=== PATIENT | male | born 1935 | race Caucasian/White ===

== ENCOUNTER 2019-06-13 13:08 | Emergency (ER) | payer OTHER, BC ==
[2019-06-13 13:23] VITALS: TEMP 98.3
[2019-06-13 13:32] VITALS: BP 117/74; BMI 26.6
--- NOTE | 2019-06-13 13:43 | PDOC ---
History of Present Illness - General Chief Complaint: Lethargy Stated Complaint: UNCONSCIOUS Time Seen by Provider: 06/13/19 13:17 - History of Present Illness Initial Comments: 06/13/19 13:36 84 yo M PMH dementia, amyloid cerebral angiopathy, HTN, sent from [facility] after reportedly being found down. Unknown if there was a fall or how long the patient was down for. Patient states "nothing happened this morning" and denies fall and LOC. However , he also denies that he was found down. Reports that he has no complaints. However, when asked orientation questions, he repeats the question and then states "I am disgusted". Denies CP, SOB, abdominal pain, fevers/chills, constipation/diarrhea, DEL TORO, N/V. Past History - Past Medical History Allergies/Adverse Reactions: Allergies Allergy/AdvReac Type Severity Reaction Status Date / Time lansoprazole Allergy Verified 06/13/19 13:48 NSAIDS (Non-Steroidal Allergy Verified 06/13/19 13:48 Anti-Inflamma COPD: No Dementia: Yes Psychiatric Problems: Yes Seizures: Yes - Psycho Social/Smoking Cessation Hx Smoking History: Unknown if ever smoked Hx Alcohol Use: No Drug/Substance Use Hx: No Review of Systems - Review of Systems Comments:: 06/13/19 13:39 Limited by dementia and amyloid cerebral angiopathy. Denies CP, SOB, abdominal pain, DEL TORO, N/V, fevers/chills. *Physical Exam - Vital Signs Last Vital Signs Temp Pulse Resp BP Pulse Ox 98.3 F 73 18 117/74 99 06/13/19 13:20 06/13/19 13:19 06/13/19 13:20 06/13/19 13:20 06/13/19 13:20 - Physical Exam 06/13/19 13:40 Gen: well-developed, well-nourished, NAD Neuro: AAOX1 (name, replies that he is disgusted when asked his birthday, the current year, where he is, and why he is here), CN II-XII intact, FTN intact, EOMI, PERRLA, 5/5 strength, SILT HEENT: atraumatic, normocephalic Neck: trachea midline, supple CV: regular rate, regular rhythm, no murmurs, rubs, or gallops Pulm: CTA b/l, no wheezing Abd: soft, non-distended, non-tender MSK: full ROM, intact pulses Extr: no edema, no deformities Skin: warm, dry ED Treatment Course - LABORATORY CBC & Chemistry Diagram: 06/13/19 13:52 06/13/19 13:52 - RADIOLOGY Radiology Studies Ordered: Category Date Time Status HEAD CT WITHOUT CONTRAST [CT] Stat CT Scan 06/13/19 13:34 Ordered CXRPORT [CHEST X-RAY PORTABLE*] [RAD] Stat Radiology 06/13/19 13:35 Ordered Medical Decision Making - Medical Decision Making 06/13/19 13:46 84 yo M with known dementia, found down. Unknown whether patient fell and how long he was down. - CBC, CMP - coags - EKG, trop - CXR - Head CT non con - CK - reassess 06/13/19 15:09 CXR rotated to the left, poor inspiratory effort, prominent mediastinum, no acute pathology. 06/13/19 15:31 CT head with no acute pathology. Has L inferior frontal lobe encephalomalacia, moderate periventricular and subcortical chronic microvascular ischemic changes. 06/13/19 15:32 CBC, CMP wnl, negative trop. CK wnl at 295, Cr 1.3. Will f/u urine. If unconcerning, will plan to dc back to [facility]. 06/13/19 16:12 UA negative. Will dc. Discharge - Discharge Information Problems reviewed: Yes Clinical Impression/Diagnosis: Unwitnessed fall Condition: Stable Disposition: HOME - Admission No - Follow up/Referral Referrals: April Wise [Primary Care Provider] - - Patient Discharge Instructions Patient Printed Discharge Instructions: How to Prevent Falls Additional Instructions: You were seen in the ED after an unwitnessed fall. Your CT scan, EKG, and labs were unconcerning. Please follow up with your primary care doctor within one week. Return to the ED if you develop worsening symptoms. - Post Discharge Activity
[2019-06-13 14:00] LABS: BASO % 0.6 % (0-2.0); EOS % 1.7 % (0-4.5); HEMATOCRIT 40.5 % (35.4-49); HEMOGLOBIN 13.5 GM/dL (11.7-16.9); LYMPH % 16.9 % (8-40); MCH 34.7 pg (25.7-33.7); MCHC 33.4 g/dl (32.0-35.9); MEAN CELL VOLUME 103.8 fl (80-96); MONO % 11.4 % (3.8-10.2); NEUT % 69.4 % (42.8-82.8); PLATELET COUNT 172 K/MM3 (134-434); RDW 14.5 % (11.9-15.9); WHITE BLOOD COUNT 6.5 K/mm3 (4.0-10.0)
[2019-06-13 14:04] VITALS: PULSE 87
[2019-06-13 14:16] LABS: INR 1.01 (0.83-1.09); PROTHROMBIN TIME (PATIENT) 11.9 SEC (9.7-13.0)
[2019-06-13 14:19] LABS: ACTIVATED PTT 31.2 SECONDS (25.2-36.5)
[2019-06-13 14:30] LABS: ALBUMIN 3.6 g/dl (3.4-5.0); BILIRUBIN,TOTAL 0.4 mg/dL (0.2-1); BLOOD UREA NITROGEN 21.2 mg/dL (7-18); CALCIUM 9.5 mg/dL (8.5-10.1); CREATININE 1.3 mg/dL (0.55-1.3); POTASSIUM 3.9 mmol/L (3.5-5.1); TOT PROT 6.1 g/dl (6.4-8.2)
--- NOTE | 2019-06-13 14:58 | PDOC ---
Documentation entered by Helena Ashton SCRIBE, acting as scribe for Delroy Woodard MD. Delroy Woodard MD: This documentation has been prepared by the Daisha oliveira Xhesika, SCRIBE, under my direction and personally reviewed by me in its entirety. I confirm that the documentation accurately reflects all work, treatment, procedures, and medical decision making performed by me. Attending Attestation - Resident Resident Name: Diana Wong - ED Attending Attestation I have performed the following: I have examined & evaluated the patient, The case was reviewed & discussed with the resident, I agree w/resident's findings & plan, Exceptions are as noted - HPI HPI: 06/13/19 17:00 The patient is an 84 year old male with a PMH of dementia, amyloid cerebral angiopathy, HTN who presents to the ED from [facility] after being found down. Per NH, unknown how long the patient was down for. Pt is a poor historian due to his clinical condition. Allergies:lansoprazole, NSAIDS Social Hx: Denies current smoking, drinking, or other substance usage - Physicial Exam PE: 06/13/19 17:02 Vitals: Triage Vital signs reviewed General Appearance: No acute distress, well nourished well developed, Cardiac: Regular rate and rhythym, no murmurs, no rubs, no gallops, Lungs: Clear to auscultation bilateral, good air movement bilaterally, Abdomen: Soft, non distended, normal bowel sounds, diffuse abdominal tenderness to palpation Extremities: Full range of motion to all extremities, no cyanosis, clubbing, or edema Skin: Warm and dry, no rashes or lesions, no rash, no petechiae Psych: Normal mood, normal affect - Medical Decision Making 06/13/19 17:17 Chronic abdominal pain in patient with Alzheimer's dementia labs CAT scan within normal limits patient does need outpatient colonoscopy discussed with family will follow-up with GI Findings, need for follow-up and strict return instructions discussed with family.
[2019-06-13 16:06] LABS: URINE APPEARANCE CLEAR; URINE BILIRUBIN NEGATIVE (NEGATIVE); URINE COLOR YELLOW; URINE GLUCOSE (UA) NEGATIVE (NEGATIVE); URINE KETONE NEGATIVE (NEGATIVE); URINE LEUK ESTERASE NEGATIVE (NEGATIVE); URINE NITRITE NEGATIVE (NEGATIVE); URINE PROTEIN TRACE (NEGATIVE); URINE UROBILINOGEN 0.2 mg/dL (0.2-1.0)
== END 2019-06-13 18:10 | disposition short-term general hospital (02) ==
LOC: JER 13:08
DX: Z04.3 Encounter for examination and observation following other accident (principal); W18.39XA Other fall on same level, initial encounter; Y93.89 Activity, other specified; Y92.099 Unspecified place in other non-institutional residence as the place of occurrence of the external cause; Z88.8 Allergy status to other drugs, medicaments and biological substances; F03.90 Unspecified dementia, unspecified severity, without behavioral disturbance, psychotic disturbance, mood disturbance, and anxiety; F99 Mental disorder, not otherwise specified; I10 Essential (primary) hypertension; I68.0 Cerebral amyloid angiopathy
CPT/HCPCS: 36415; 70450-TC; 71045-TC-FY; 80053; 81003; 82550; 82553; 82962; 84484; 85025; 85610; 85730; 87086; 99282-25

== ENCOUNTER 2019-06-14 05:07 | Emergency (ER) | payer OTHER, BC ==
[2019-06-14 05:32] VITALS: BP 110/77; PULSE 81; TEMP 98.4; BMI 26.6
--- NOTE | 2019-06-14 05:54 | PDOC ---
History of Present Illness - General Chief Complaint: Injury Stated Complaint: FALL Time Seen by Provider: 06/14/19 05:14 - History of Present Illness Initial Comments: Rai Cronin is an 84yo man with a PMH of dementia, amyloid cerebral angiopathy, HTN, DNR/DNI who presents from [facility] after an unwitnessed fall. Per the SNF, Mr Cronin was seen in his room in the evening and was reportedly becoming agitated. He was left alone for several minutes, and when staff returned he was found on the floor of the shower. He was awake and alert, and he reportedly complained of right leg pain. Mr Cronin was seen yesterday afternoon in the ED with a similar unwitnessed fall. Past History - Past Medical History Allergies/Adverse Reactions: Allergies Allergy/AdvReac Type Severity Reaction Status Date / Time lansoprazole Allergy Verified 06/14/19 05:09 NSAIDS (Non-Steroidal Allergy Verified 06/14/19 05:09 Anti-Inflamma COPD: No Dementia: Yes Psychiatric Problems: Yes Seizures: Yes - Psycho Social/Smoking Cessation Hx Smoking History: Unknown if ever smoked Have you smoked in the past 12 months: No Information on smoking cessation initiated: No Hx Alcohol Use: No Drug/Substance Use Hx: No Review of Systems - Review of Systems Comments:: Could not obtain secondary to dementia *Physical Exam - Vital Signs Last Vital Signs Temp Pulse Resp BP Pulse Ox 98.4 F 81 20 110/77 98 06/14/19 05:09 06/14/19 05:09 06/14/19 05:09 06/14/19 05:09 06/14/19 05:09 - Physical Exam General: Comfortable, no acute distress HEENT: Atraumatic, PERRL, EOMI, MMM, no posterior neck tenderness Cards: RRR, no murmur appreciated Pulm: Comfortable on room air, clear to auscultation bilaterally Abd: Soft, nontender, nondistended Ext: Atraumatic without deformity, tenderness, erythema, edema, or ecchymosis. Moves all extremities Skin: Normal color, no rashes or lesions Neuro: Sleeping comfortably, easily wakened. CN grossly intact, normal speech, motor/sensory grossly intact and symmetric Psych: Mood appropriate to situation Medical Decision Making - Medical Decision Making 06/14/19 05:47 Rai Cronin is an 84yo man with a PMH of dementia, amyloid cerebral angiopathy, HTN who presents from [facility] after an unwitnessed, reportedly mechanical fall in the shower. - Appears to be mechanical fall, pt was only alone for several minutes, no indication of preceding or subsequent symptoms - Full workup approximately 12 hours ago. Will not repeat - CT head, CT c-spine to evalute for injury - No RLE pain or visible injury on exam. No imaging needed. 06/14/19 06:53 - CT head, c-spine negative for acute pathology - Will discharge home back to [facility] Discussed with Dr Maris Tolliver PGY2 Discharge - Discharge Information Problems reviewed: Yes Clinical Impression/Diagnosis: Unwitnessed fall Condition: Stable Disposition: HOME - Admission No - Follow up/Referral Referrals: April Wise [Primary Care Provider] - - Patient Discharge Instructions Patient Printed Discharge Instructions: How to Prevent Falls, DI for Closed Head Injury Additional Instructions: Discharge Instructions: You were seen in the emergency department following a fall. You had a had and neck CT scan that did not show any fracture or other injury. Home Care and Follow Up: - You may use over the counter medications as needed for pain at home. 650- 1000mg acetaminophen (Tylenol) or 600mg ibuprofen (Motrin or Advil) can be used every 6-8 hours. - It is strongly recommended that you take ibuprofen with food to help prevent stomach irritation. - You may buy a numbing patch that contains lidocaine (the patch is 4% lidocaine ) that can be placed over the areas of greatest pain. The lidocaine patch may be placed for 12 hours then removed for 12 hours. - Try using an ice pack for 20 minutes every hour or a heating pad for additional pain control. These should NOT be used over the lidocaine patch, but you may place them over the areas of pain while the patch is off. - Do not stop moving around. As much as you can tolerate, continue to do light exercise and stretching exercises. Increase your activity level as much as you can tolerate daily. - If your pain does not improve over the next week, please see your regular doctor for follow up. - Seek immediate medical care if you have significant worsening of your symptoms , additional falls, pain that does not improve with medication, you are unusually sleepy, you have any neurological deficits (one-sided weakness, numbness, changes in voice, changes in vision, etc), you have multiple episodes of vomiting per hour for 2 or more hours, or you have any other medical emergency. - Post Discharge Activity
--- NOTE | 2019-06-14 07:01 | PDOC ---
Attending Attestation - Resident Resident Name: Monica Tolliver - ED Attending Attestation I have performed the following: I have examined & evaluated the patient, The case was reviewed & discussed with the resident, I agree w/resident's findings & plan - HPI HPI: 06/14/19 07:00 Rai Cronin is an 84yo man with a PMH of dementia, amyloid cerebral angiopathy, HTN, DNR/DNI who presents from [facility] after an unwitnessed fall in the shower. Per the [facility], Mr Cronin was seen in his room in the evening and was reportedly becoming agitated. He was left alone for several minutes, and when staff returned he was found on the floor of the shower. He was awake and alert, and he reportedly complained of right leg pain. Mr Cronin was seen yesterday afternoon in the ED with a similar unwitnessed fall , with negative workup including labs/EKG and imaging.. new to the dementia unit. 06/14/19 07:05 - Physicial Exam PE: 06/14/19 07:01 Agree with the resident's HPI and PE as documented in the electronic medical record. NAD, pleasantly demented, resting comfortably. EOMI, PERRL, nl conjunctiva, anicteric; neck supple. lungs clear, RRR, abdomen soft nontender. No rebound, no guarding. pelvis stable, FROM in prox and distal joints. Back nontender. ROBLES x4. No peripheral edema. normal color for ethnicity, WWP. no discoloration or ecchymosis. 06/14/19 07:04 - Medical Decision Making 06/14/19 07:01 Vital Signs Temp Pulse Resp BP Pulse Ox 98.4 F 81 20 110/77 98 06/14/19 05:09 06/14/19 05:09 06/14/19 05:09 06/14/19 05:09 06/14/19 05:09 unremarkable workup in the past 24 hours from [facility] after fall, normal labs/ lytes, UA. HD appropriate, no fever. no tenderness elicited on exam, baseline dementia CT head and C spine neg for acute injuries/bleed, fx. no further workup or labs indicated at this time given unremarkable workup in the ED. DC back to [facility], fall prevention and precautions provided. 06/14/19 07:05
== END 2019-06-14 09:20 | disposition home or self-care (01) ==
LOC: JER 05:07
DX: Z04.3 Encounter for examination and observation following other accident (principal); W18.39XA Other fall on same level, initial encounter; Y93.89 Activity, other specified; Y92.091 Bathroom in other non-institutional residence as the place of occurrence of the external cause; Z88.8 Allergy status to other drugs, medicaments and biological substances; I68.0 Cerebral amyloid angiopathy; I10 Essential (primary) hypertension; F03.90 Unspecified dementia, unspecified severity, without behavioral disturbance, psychotic disturbance, mood disturbance, and anxiety; R56.9 Unspecified convulsions; F99 Mental disorder, not otherwise specified
CPT/HCPCS: 70450-TC; 72125-TC; 99282-25

== ENCOUNTER 2019-06-29 11:15 | Inpatient (IN) | payer OTHER, BC ==
[2019-06-29] MEDS ORDERED: SODIUM CHLORIDE 2,041 ML IV ONE (12:15)
[2019-06-29] MEDS ORDERED: ACETAMINOPHEN INJECTION 100 ML IVPB ONE (12:50)
[2019-06-29] MEDS ORDERED: ACETAMINOPHEN 1000 MG/100 ML VIAL (NON FORMULARY) IVPB ONE (12:58)
--- NOTE | 2019-06-29 13:00 | PDOC ---
Documentation entered by Patricia Flores SCRIBE, acting as scribe for Laurel Pollock MD. Laurel Pollock MD: This documentation has been prepared by the Mark oliveira Brenda, SCRIBE, under my direction and personally reviewed by me in its entirety. I confirm that the documentation accurately reflects all work, treatment, procedures, and medical decision making performed by me. History of Present Illness - General Chief Complaint: Cold Symptoms Stated Complaint: FEVER History Source: Patient Exam Limitations: No Limitations - History of Present Illness Initial Comments: 06/29/19 12:31 Rai Cronin is an 84yo man with a PMH of dementia, amyloid cerebral angiopathy, HTN, DNR/DNI who presents from [facility] for lethargy and a fever of 102.3. As per EMS report, the MS was also concerned about the patient's vitals, which were reported as follows: Temp 102.3, HR 104, BP 147/92 and respiratory rate 20. As per patients records, he has had frequent falls in June 2019, with unremarkable imaging and workup. ROS limited due to dementia Allergies: None Past Medical History: Dementia, amyloid cerebral angiopathy, HTN, seizures Social history: Lives at [address] [place] [address]. Unknown if ever smoked. no flu shot this year. Surgical history: None reported Meds: as documented in EMR PMD: April Wise 06/29/19 13:16 Past History - Past Medical History Allergies/Adverse Reactions: Allergies Allergy/AdvReac Type Severity Reaction Status Date / Time lansoprazole Allergy Verified 06/29/19 11:58 NSAIDS (Non-Steroidal Allergy Verified 06/29/19 11:58 Anti-Inflamma Home Medications: Ambulatory Orders Allopurinol 300 mg PO DAILY 06/28/19 Donepezil HCl 10 mg PO DAILY 06/28/19 Enalapril Maleate [Vasotec] 20 mg PO DAILY 06/28/19 Levomefolate/Algal Oil [Deplin-Algal Oil 15 mg Capsule] 15 - 90.314 each PO DAILY 06/28/19 Naratriptan HCl [Amerge -] 2.5 mg PO PRN PRN 06/28/19 Olanzapine 7.5 mg PO DAILY 06/28/19 Pravastatin Sodium 20 mg PO HS 06/28/19 levETIRAcetam [Keppra -] 250 mg PO BID 06/28/19 COPD: No Dementia: Yes Psychiatric Problems: Yes Seizures: Yes - Psycho Social/Smoking Cessation Hx Smoking History: Never smoked Have you smoked in the past 12 months: No Hx Alcohol Use: No Drug/Substance Use Hx: No Review of Systems - Review of Systems Able to Perform ROS?: No Comments:: 06/29/19 12:23 ROS limited due to patient's dementia and hearing impairment. *Physical Exam - Vital Signs Last Vital Signs Temp Pulse Resp BP Pulse Ox 97.8 F 101 H 18 141/90 94 L 06/29/19 11:15 06/29/19 11:15 06/29/19 11:15 06/29/19 11:15 06/29/19 11:15 - Physical Exam 06/29/19 12:31 General: (+) Demented. actively coughing. HEENT: NCAT, PERRL, EOMI, clear conjunctiva, anicteric, moist mucous membranes , clear oropharynx, no oral lesions.. Neck: neck supple, FROM Resp: (+) Bilateral crackles. mildly tachypneic. CVS: (+) Tachycardic. No murmurs, 2+ peripheral pulses throughout, no peripheral edema Abdomen: soft, NTND, no rebound or guarding. Back: nontender, normal inspection and ROM MSK: no edema, ROBLES x4, ROM intact. No clubbing or cyanosis. normal bulk and tone. Extremities: no calf tenderness Neuro: alert, dementia, (+) tremors at baseline. Skin: Very warm and well perfused, cap refill <2 sec, normal color. (+) Warm to the touch. 06/29/19 13:17 Heart Score/ECG Review #1 ECG reviewed & interpreted by me at: 12:15 General ECG Interpretation: Sinus Rhythm, Normal Intervals 06/29/19 12:59 EKG sinus tachycardia 104 bpm, no interval abnormalities, narrow QRS, ST and T wave segments and morphology normal. Nonspecific T wave abnormalities ED Treatment Course - LABORATORY CBC & Chemistry Diagram: 06/29/19 13:00 06/29/19 13:00 - RADIOLOGY Radiology Studies Ordered: Category Date Time Status CHEST X-RAY PORTABLE* [RAD] Stat Radiology 06/29/19 11:57 Completed Medical Decision Making - Critical Care Time Total Critical Care Time (minutes): 60 (acute respiratory failure) Critical Care Statement: The care of this patient involved high complexity decision making to prevent further life threatening deterioration of the patient 's condition and/or to evaluate & treat vital organ system(s) failure or risk of failure. - Medical Decision Making 06/29/19 12:59 Vital Signs Temp Pulse Resp BP Pulse Ox 97.8 F 101 H 18 141/90 94 L 06/29/19 11:15 06/29/19 11:15 06/29/19 11:15 06/29/19 11:15 06/29/19 11:15 Vital signs reviewed notable for rectal temperature of 101, while residential it was 102.3. Tachycardia, SPO2 is borderline 88 to 94% on room air, placed on supplemental oxygen for mild hypoxia. Differential diagnosis includes pneumonia, viral syndrome, influenza, dehydration, anemia, electrolyte/metabolic derangements, ACS, arrhythmia, UTI, pleural effusion labs and lytes wnl, reassuring Patient was given DuoNeb for his cough, on supplemental oxygen for his respiratory symptoms and hypoxia. Vancomycin and Zosyn given for antibiotic coverage of presumed pneumonia. Despite chest x-ray negative for acute pulmonary pathology, however xray is poorly sensitive, with clinical sx, viral vs bacterial pna with risk factors for complications.. However he does have a fever with a productive cough and hypoxia and there is suspicion for pneumonia versus viral illness. Influenza swab is negative. lactic acid elevated 2.4, will hydrate, likely related to dehydration and sepsis /infection, will recheck after fluids and trend will require continued O2, chest PT and nebs prn, abx and supportive care discussed with family member, son in law Neftali came to bedside and updated with information as well as cali Cronin (, currently away and returning to [facility] in 2 days). also DNR/DNI confirmed with paperwork CT head for eval of intracranial etiology for lethargy, given h/o cerebral amyloid ID cs with Dr Acosta discussed case tamiflu for high risk flu features, droplet precautions with mask. on supp O2. admitting to Dr Hill, administrative operations coordinator physician taking admits is Dr Sheikh, discussed case and provided signout, impression and management plan. 06/29/19 16:51 Discharge - Discharge Information Problems reviewed: Yes Clinical Impression/Diagnosis: Pneumonia, Febrile illness, acute, Lactic acidosis Acute respiratory failure Qualifiers: Respiratory failure complication: hypoxia Qualified Code(s): J96.01 - Acute respiratory failure with hypoxia Condition: Fair - Admission Yes - Follow up/Referral - Patient Discharge Instructions - Post Discharge Activity
--- NOTE | 2019-06-29 13:14 | EKG ---
Test Reason : Blood Pressure : / mmHG Vent. Rate : 104 BPM Atrial Rate : 104 BPM P-R Int : 170 ms QRS Dur : 092 ms QT Int : 332 ms P-R-T Axes : 049 -37 062 degrees QTc Int : 436 ms SINUS TACHYCARDIA LEFT AXIS DEVIATION INFERIOR INFARCT , AGE UNDETERMINED POSSIBLE ANTERIOR INFARCT , AGE UNDETERMINED ABNORMAL ECG NO PREVIOUS ECGS AVAILABLE Confirmed by KRISTYN GIVENS MD ([id number]) on 06/29/2019 1:14:38 PM Referred By: Confirmed By:KRISTYN GIVENS MD
[2019-06-29 13:40] LABS: VENOUS PC02 45.1 mmHg (38-52); VENOUS PO2 < 49 mmHg (28-48)
[2019-06-29 13:45] LABS: BASO % 0.3 % (0-2.0); HEMATOCRIT 46.5 % (35.4-49); HEMOGLOBIN 15.9 GM/dL (11.7-16.9); LYMPH % 13.9 % (8-40); MCH 34.9 pg (25.7-33.7); MCHC 34.2 g/dl (32.0-35.9); MEAN PLT VOLUME 9.4 fl (7.5-11.1); MONO % 16.7 % (3.8-10.2); NEUT % 69.1 % (42.8-82.8); PLATELET COUNT 191 K/MM3 (134-434); RBC 4.56 M/mm3 (4.00-5.60); RDW 14.6 % (11.9-15.9); WHITE BLOOD COUNT 7.2 K/mm3 (4.0-10.0)
[2019-06-29] MEDS ORDERED: VANCOMYCIN 1,250 MG in DEXTROSE 5%-WATER - 250 ML IVPB ONE (13:51)
[2019-06-29] MEDS ORDERED: PIPERACILLIN/TAZOB 4.5 GM 4.5 GM in DEXTROSE 5%-WATER 100 ML IVPB ONE (13:51)
[2019-06-29 13:58] LABS: INR 1.18 (0.83-1.09); PROTHROMBIN TIME (PATIENT) 13.9 SEC (9.7-13.0)
[2019-06-29 14:00] LABS: ACTIVATED PTT 34.3 SECONDS (25.2-36.5)
[2019-06-29 14:09] LABS: ALBUMIN 3.6 g/dl (3.4-5.0); ALK PHOS 79 U/L (45-117); ANION GAP 8 MMOL/L (8-16); BILIRUBIN,TOTAL 1.3 mg/dL (0.2-1); BLOOD UREA NITROGEN 22.1 mg/dL (7-18); CHLORIDE 102 mmol/L (98-107); CO2 25 mmol/L (21-32); CREATININE 1.4 mg/dL (0.55-1.3); GLUCOSE,RANDOM 112 mg/dL (74-106); POTASSIUM 4.9 mmol/L (3.5-5.1); SGOT/AST 54 U/L (15-37); SGPT/ALT 39 U/L (13-61); SODIUM 135 mmol/L (136-145); TOT PROT 6.8 g/dl (6.4-8.2)
[2019-06-29] MEDS ORDERED: ALBUTEROL SO4 2.5/IPRATROPIUM 0.5 INH SOL 3 ML VIAL.NEB. NEB ONE ×2 (14:11→15:52)
[2019-06-29] MEDS ORDERED: PIPERACILLIN/TAZOB 4.5 GM 4.5 GM/100 ML BAG IVPB ONE (14:13)
[2019-06-29] MEDS ORDERED: OSELTAMIVIR PHOSPHATE 75 MG CAPSULE PO ONE (16:11)
[2019-06-29 16:49] LABS: HYALINE CASTS 9 /lpf (0-8); URINE APPEARANCE CLEAR; URINE BACTERIA 15.8 /hpf (NEGATIVE); URINE BILIRUBIN NEGATIVE (NEGATIVE); URINE COLOR YELLOW; URINE GLUCOSE (UA) NEGATIVE (NEGATIVE); URINE KETONE 1+ (NEGATIVE); URINE LEUK ESTERASE NEGATIVE (NEGATIVE); URINE NITRITE NEGATIVE (NEGATIVE); URINE PROTEIN 1+ (NEGATIVE); URINE RBC 10 /hpf (0-4); URINE UROBILINOGEN 0.2 mg/dL (0.2-1.0); URINE WBC 2 /hpf (0-5)
[2019-06-29] MEDS ORDERED: OSELTAMIVIR PHOSPHATE 6 MG/1 ML PO ONE (17:29)
--- NOTE | 2019-06-29 18:00 | HP ---
Admitting History and Physical - Admission Chief Complaint: Acute fever, lethargy, and congestion. History of Present Illness: This 84 yr old w/m with hx of dementia, prostate cancer, amyloid cerebral angiopathy, DNR/DNI, HTN, and seizures admitted via ER with acute fever 102.3F, acute lethargy, congestion, acute sepsis, acute pneumonia, acute lactic acidosis , and acute respiratory failure with hypoxia. History Source: Family Member, Medical Record Limitations to Obtaining History: Dementia - Past Medical History [employer]: Yes: Dementia, Seizure Cardiovascular: Yes: HTN Pulmonary: Yes: Pneumonia Gastrointestinal: No: Ascites, Cancer, Constipation, Crohn's Disease, Diverticulitis, Diverticulosis, Esophageal Varices, Gastritis, GERD, GI Bleed, Hemorrhoids, Hiatal Hernia, Inflamatory Bowel Disease, Irritable Bowel Disease, Pancreatitis, Peptic Ulcer Disease, Ulcerative Colitis, Other Hepatobiliary: No: Cirrhosis, Cholelithiasis, Cholecystitis, Choledocholithiasis , Hepatitis A, Hepatitis B, Hepatitis C, Other Renal/: Yes: Cancer (prostate, s/p total prostatectomy) Heme/Onc: No: Anemia, B12 Deficiency, Bleeding Disorder, Cancer, Current Chemotherapy, Current Radiation Therapy, Hemochromatosis, Hypercoaguable State, Myeloproliferative Synd, Sickle Cell Disease, Sickle Cell Trait, Thrombocytopenia, Other Infectious Disease: No: AIDS, C-Diff, Herpes Zoster, HIV, MRSA, STD's, Tuberculosis, VREF, Other Musculoskeletal: No: Bursitis, Chronic low back pain, Hemiparesis, Hemiplegia, Osteoarthritis, Paraplegia, Other Rheumatology: No: Fibromyalgia, Gout, Lupus, Rheumatoid Arthritis, Sarcoidosis, Vasculitis, Other ENT: No: Allergic Rhinitis, Sinusitis, Other Endocrine: No: Jones's Disease, [place]'s Disease, Diabetes Insipidus, Diabetes Mellitus, Hyperparathyroidism, Hyperthyroidism, Hypothyroidism, Osteopenia, SIADH, Other Dermatology: No: Basal Cell, Cellulitis, Eczema, Melanoma, Psoriasis, Squamous Cell, Other - Past Surgical History Past Surgical History: Yes: Prostatectomy (ca of prostate) - Advance Directives Advance Directives: Yes: DNR - Smoking History Smoking history: Never smoked Have you smoked in the past 12 months: No - Alcohol/Substance Use Hx Alcohol Use: No - Social History Usual Living Arrangement: Yes: Assisted Living History of Recent Travel: No Home Medications - Allergies Allergies/Adverse Reactions: Allergies Allergy/AdvReac Type Severity Reaction Status Date / Time lansoprazole Allergy Verified 06/29/19 11:58 NSAIDS (Non-Steroidal Allergy Verified 06/29/19 11:58 Anti-Inflamma - Home Medications Home Medications: Ambulatory Orders Allopurinol 300 mg PO DAILY 06/28/19 Donepezil HCl 10 mg PO DAILY 06/28/19 Enalapril Maleate [Vasotec] 20 mg PO DAILY 06/28/19 Levomefolate/Algal Oil [Deplin-Algal Oil 15 mg Capsule] 15 - 90.314 each PO DAILY 06/28/19 Naratriptan HCl [Amerge -] 2.5 mg PO PRN PRN 06/28/19 Olanzapine 7.5 mg PO HS 06/28/19 Pravastatin Sodium 20 mg PO HS 06/28/19 levETIRAcetam [Keppra -] 250 mg PO BID 06/28/19 Review of Systems - Review of Systems Constitutional: reports: Fever, Lethargy, Loss of Appetite, Weakness, Other ( congestion) Eyes: reports: No Symptoms HENT: reports: Hearing Loss Neck: reports: No Symptoms Cardiovascular: reports: No Symptoms Respiratory: reports: Orthopnea, SOB, SOB on Exertion Gastrointestinal: reports: No Symptoms Genitourinary: reports: No Symptoms Breasts: reports: No Symptoms Reported Musculoskeletal: reports: Muscle Weakness Integumentary: reports: No Symptoms Neurological: reports: Unsteady Gait, Weakness Hematology/Lymphatic: reports: No Symptoms Psychiatric: reports: No Symptoms Physical Examination Vital Signs: Vital Signs Temperature 97.8 F 06/29/19 11:15 Pulse Rate 101 H 06/29/19 11:15 Respiratory Rate 18 06/29/19 11:15 Blood Pressure 141/90 06/29/19 11:15 O2 Sat by Pulse Oximetry (%) 94 L 06/29/19 12:00 Constitutional: Yes: Well Nourished, Mild Distress Eyes: Yes: Conjunctiva Clear, EOM Intact HENT: Yes: Atraumatic, Normocephalic Neck: Yes: Supple, Trachea Midline Cardiovascular: Yes: Regular Rate and Rhythm, Tachycardia Respiratory: Yes: Accessory Muscle Use, Diminished, On Nasal O2, Rhonchi, SOB, SOB on Exertion Gastrointestinal: Yes: Normal Bowel Sounds, Soft ...Rectal Exam: Yes: Deferred Renal/: Yes: WNL Breast(s): Yes: WNL Musculoskeletal: Yes: Muscle Weakness Extremities: Yes: Other (generalized muscle weakness) Edema: No Peripheral Pulses WNL: Yes Peripheral Pulses: Left Radial: 3+, Right Radial: 3+, Left Doralis Pedis: 2+, Right Dorsalis Pedis: 2+, Left Femoral: 3+, Right Femoral: 3+ Integumentary: Yes: WNL Neurological: Yes: Alert, Lethargy, Unsteady Gait, Weakness ...Motor Strength: LUE (generalized muscle weakness of all extremities) Psychiatric: Yes: Alert Labs: CBC, BMP 06/29/19 13:00 06/29/19 13:00 Imaging - Results Chest X-ray: Report Reviewed Other: Report Reviewed (Lab data reviewed) Problem List - Problems (1) Lethargy Code(s): R53.83 - OTHER FATIGUE (2) Acute respiratory failure Code(s): J96.00 - ACUTE RESPIRATORY FAILURE, UNSP W HYPOXIA OR HYPERCAPNIA Qualifiers: Respiratory failure complication: hypoxia Qualified Code(s): J96.01 - Acute respiratory failure with hypoxia (3) Febrile illness, acute Code(s): R50.9 - FEVER, UNSPECIFIED (4) Lactic acidosis Code(s): E87.2 - ACIDOSIS (5) Pneumonia Code(s): J18.9 - PNEUMONIA, UNSPECIFIED ORGANISM (6) Unwitnessed fall Code(s): R29.6 - REPEATED FALLS (7) Acute sepsis Code(s): A41.9 - SEPSIS, UNSPECIFIED ORGANISM Assessment/Plan Assessment/plan: acute sepsis, acute pneumonia, acute respiratory failure with hypoxia, acute fever, acute lethargy, acute lactic acidosis; IV fluids, IV Piperacillin, IV Vancomycin, SCD'S for DVT prophylaxis, consult to ID, physical therapy, discussed clinical condition of the patient with the family.
[2019-06-29] MEDS: DEXTROSE 5%-0.45% SALINE 1,000 ML IV SCH (18:39)
--- NOTE | 2019-06-29 19:39 | PN ---
Progress Note (short form) - Note Progress Note: ID CONSULT DICTATED
[2019-06-29] MEDS ORDERED: VANCOMYCIN 1 GRAM (PRE-DOCKED) 1,000 MG/250 ML BAG IVPB ONE (19:54)
[2019-06-29] MEDS: VANCOMYCIN 1 GRAM (PRE-DOCKED) 1,000 MG/250 ML BAG IVPB SCH (20:15)
[2019-06-29] MEDS ORDERED: OLANZapine 7.5 MG TABLET PO SCH (22:00)
--- NOTE | 2019-06-29 23:48 | CONS ---
DATE OF CONSULTATION: DATE OF DICTATION: 06/29/2019 INFECTIOUS DISEASE CONSULTATION HISTORY OF PRESENT ILLNESS: The patient is an 84-year-old male evaluated for sepsis. History was obtained from the chart, as he cannot give a history secondary to dementia. He is a resident of an assisted living facility. He is admitted to the hospital on June 19, 2019, with reports of increasing lethargy and fever to 102.3. He had been having worsening debility over the past several days with frequent falls. In addition, he was noted to have congestion and cough. He was brought to the emergency room where he was thought to be febrile, tachycardic, and hypoxemic. Chest x-ray showed increased markings bilaterally without focal infiltrate. Cultures were obtained. He was empirically treated with vancomycin and Zosyn. Influenza swab was performed, and it was negative. He was started on Tamiflu in light of his symptoms. He is a resident of a long-term facility. He has had no recent hospitalizations at [facility]. PAST MEDICAL HISTORY: Positive for dementia. Amyloid cerebral angiopathy. Hypertension. Seizure disorder. ALLERGIES: NSAIDS and LANSOPRAZOLE. MEDICATION: Include allopurinol, Vasotec, Keppra, pravastatin, donepezil. SOCIAL HISTORY: Resides in an assisted living complex. Nonsmoker, nondrinker. SYSTEMS REVIEW: Neurologic: Positive for dementia and seizure disorder. Cardiac: Negative for chest pain or palpitations. Respiratory: As per HPI. Gastrointestinal: Negative vomiting or diarrhea. Genitourinary: Negative for urinary tract infection. LABORATORY DATA: White count 7.2, hematocrit 46.5, platelets 195, BUN 22, creatinine 1.4. Urinalysis: 2 white cells, lactic acid 2.4. Cultures are pending. PHYSICAL EXAMINATION: General: On exam, he is awake. He is lethargic but arousable. Audibly congested. Vital signs: Temperature 97.8, blood pressure 141/90, pulse 101 regular, respirations 18 per minute. HEENT: Sclerae anicteric. Cardiovascular: Heart sounds S1, S2. Lungs: Bilateral rhonchi. Abdomen: Soft, no tenderness elicited. No mass, rebound, or rigidity. Extremities: 1+ edema. IMPRESSION: 1. Sepsis, likely pulmonary source. 2. Rule out aspiration versus healthcare required pneumonia. 3. Rule out viral syndrome (influenza). 4. Lactic acidosis. Await culture results. Empiric antibiotic coverage with vancomycin and Zosyn. In light of fever, congestion, and unvaccinated status, would empirically treat with Tamiflu. Place on precautions. Further recommendations pending cultures. Case discussed with patient's daughter present at the time of the examination. Thank you for the kind referral. KRISTYN BLAKE M.D. [id number]
[2019-06-29] MEDS: levETIRAcetam 250 MG TABLET PO SCH (23:50)
[2019-06-30] MEDS ORDERED: PIPERACILLIN/TAZOB 3.375 GM 3.375 GM/50 ML BAG IVPB ONE (02:06)
[2019-06-30] MEDS: PIPERACILLIN/TAZOB 3.375 GM 3.375 GM in DEXTROSE 5%-WATER - 50 ML IVPB SCH ×3 (02:11→17:39)
[2019-06-30 08:19] LABS: BASO % 0.6 % (0-2.0); EOS % 0.8 % (0-4.5); HEMATOCRIT 41.9 % (35.4-49); HEMOGLOBIN 14.1 GM/dL (11.7-16.9); LYMPH % 16.1 % (8-40); MCH 34.6 pg (25.7-33.7); MCHC 33.6 g/dl (32.0-35.9); MEAN CELL VOLUME 102.9 fl (80-96); MEAN PLT VOLUME 8.3 fl (7.5-11.1); MONO % 16.7 % (3.8-10.2); NEUT % 65.8 % (42.8-82.8); PLATELET COUNT 160 K/MM3 (134-434); RBC 4.07 M/mm3 (4.00-5.60); RDW 14.2 % (11.9-15.9); WHITE BLOOD COUNT 5.4 K/mm3 (4.0-10.0)
[2019-06-30 08:56] LABS: ALBUMIN 3.1 g/dl (3.4-5.0); BILIRUBIN,TOTAL 1.2 mg/dL (0.2-1); CALCIUM 8.9 mg/dL (8.5-10.1); CREATININE 1.4 mg/dL (0.55-1.3); POTASSIUM 4.8 mmol/L (3.5-5.1); TOT PROT 6.4 g/dl (6.4-8.2)
--- NOTE | 2019-06-30 10:30 | PN ---
Progress Note, Physician Chief Complaint: Patient seen and examined at the bedside, lethargic, cough, congestion. History of Present Illness: This 84 yr old w/m with hx of prostate cancer, s/o total prostatectomy, amyloid cerebral angiopathy, dementia, DNR/DNI, hypertension, and seizure admitted via ER with acute fever, acute lethargy, acute pneumonia, acute respiratory failure with hypoxia, and acute sepsis. - Current Medication List Current Medications: Active Medications Allopurinol (Zyloprim -) 300 mg PO DAILY [facility] Donepezil HCl (Aricept -) 10 mg PO DAILY [facility] Enalapril Maleate (Vasotec -) 20 mg PO DAILY [facility] Dextrose/Sodium Chloride (D5-1/2ns -) 1,000 mls @ 75 mls/hr IV ASDIR [facility] Last Admin: 06/29/19 18:39 Dose: 75 mls/hr Vancomycin HCl (Vancomycin (Pre-Docked)) 1,000 mg in 250 mls @ 166.667 mls/hr IVPB Q12H [facility]; Protocol Last Admin: 06/29/19 20:15 Dose: 166.667 mls/hr Piperacillin Sod/Tazobactam (Sod 3.375 gm/ Dextrose) 50 mls @ 100 mls/hr IVPB Q8H-IV [facility]; Protocol Last Admin: 06/30/19 02:11 Dose: 100 mls/hr Levetiracetam (Keppra -) 250 mg PO BID [facility] Last Admin: 06/29/19 23:50 Dose: 250 mg Olanzapine (Zyprexa -) 7.5 mg PO HS [facility] Last Admin: 06/29/19 23:50 Dose: 7.5 mg - Objective Vital Signs: Vital Signs Temperature 99.6 F 06/30/19 09:15 Pulse Rate 95 H 06/30/19 09:15 Respiratory Rate 06/30/19 09:15 Blood Pressure 126/86 06/30/19 09:15 O2 Sat by Pulse Oximetry (%) 94 L 06/30/19 09:34 Constitutional: Yes: Well Nourished, Calm, Other (lethargic) Eyes: Yes: Conjunctiva Clear, EOM Intact HENT: Yes: Atraumatic, Normocephalic Neck: Yes: Supple, Trachea Midline Cardiovascular: Yes: Regular Rate and Rhythm Respiratory: Yes: CTA Bilaterally, Cough, On Nasal O2, Orthopnea, Rales, Rhonchi , SOB, SOB on Exertion Gastrointestinal: Yes: Normal Bowel Sounds, Soft ...Rectal Exam: Yes: Deferred Genitourinary: Yes: WNL Breast(s): Yes: WNL Musculoskeletal: Yes: Muscle Weakness Extremities: Yes: WNL Edema: No Peripheral Pulses WNL: Yes Peripheral Pulses: Left Radial: 2+, Right Radial: 2+, Left Doralis Pedis: 2+, Right Dorsalis Pedis: 2+, Left Femoral: 2+, Right Femoral: 2+ Integumentary: Yes: WNL Neurological: Yes: Unsteady Gait, Weakness ...Motor Strength: LUE (generalized muscle weakness of all extremities) Psychiatric: Yes: Alert, Oriented Labs: CBC, BMP 06/30/19 07:22 06/30/19 07:22 INR, PTT INR 1.18 (0.83-1.09) H 06/29/19 13:00 - ....Imaging Other: Report Reviewed (Lab data reviewed) Problem List - Problems (1) Lethargy Code(s): R53.83 - OTHER FATIGUE (2) Acute respiratory failure Code(s): J96.00 - ACUTE RESPIRATORY FAILURE, UNSP W HYPOXIA OR HYPERCAPNIA Qualifiers: Respiratory failure complication: hypoxia Qualified Code(s): J96.01 - Acute respiratory failure with hypoxia (3) Febrile illness, acute Code(s): R50.9 - FEVER, UNSPECIFIED (4) Lactic acidosis Code(s): E87.2 - ACIDOSIS (5) Pneumonia Code(s): J18.9 - PNEUMONIA, UNSPECIFIED ORGANISM (6) Unwitnessed fall Code(s): R29.6 - REPEATED FALLS (7) Acute sepsis Code(s): A41.9 - SEPSIS, UNSPECIFIED ORGANISM Assessment/Plan Assessment/plan: acute fever, acute lethargy, acute congestion, acute pneumonia , acute sepsis; IV fluids, IV Piperacillin, IV Vancomycin, SCD'S for DVT prophylaxis, physical therapy.
[2019-06-30] MEDS ORDERED: PIPERACILLIN/TAZOBACTAM 3.375 GM VIAL IVPB ONE ×2 (10:48→17:37)
[2019-06-30] MEDS ORDERED: DEXTROSE 5%-WATER - 50 ML IVPB ONE ×2 (10:48→17:38)
[2019-06-30] MEDS: ENALAPRIL MALEATE 10 MG TABLET (FP) PO SCH (11:04)
[2019-06-30] MEDS: VANCOMYCIN 1 GRAM (PRE-DOCKED) 1,000 MG/250 ML BAG IVPB SCH ×2 (11:04→21:01)
[2019-06-30] MEDS: ALLOPURINOL 300 MG TABLET (FP) PO SCH (11:05)
[2019-06-30] MEDS: levETIRAcetam 250 MG TABLET PO SCH (11:05)
[2019-06-30] MEDS: DONEPEZIL HCL 10 MG TABLET (FP) PO SCH (11:05)
--- NOTE | 2019-06-30 12:02 | PN ---
Progress Note, Physician History of Present Illness: LETHARGIC BUT AROUSABLE NO ACUTE DISTRESS BREATHING NON LABORED LOW GRADE TEMP 100.5 WBC WNL BC PRELIM NO GROWTH - Current Medication List Current Medications: Active Medications Allopurinol (Zyloprim -) 300 mg PO DAILY [facility] Last Admin: 06/30/19 11:05 Dose: Not Given Donepezil HCl (Aricept -) 10 mg PO DAILY [facility] Last Admin: 06/30/19 11:05 Dose: Not Given Enalapril Maleate (Vasotec -) 20 mg PO DAILY [facility] Last Admin: 06/30/19 11:04 Dose: Not Given Dextrose/Sodium Chloride (D5-1/2ns -) 1,000 mls @ 75 mls/hr IV ASDIR [facility] Last Admin: 06/29/19 18:39 Dose: 75 mls/hr Vancomycin HCl (Vancomycin (Pre-Docked)) 1,000 mg in 250 mls @ 166.667 mls/hr IVPB Q12H [facility]; Protocol Last Admin: 06/30/19 11:04 Dose: 166.667 mls/hr Piperacillin Sod/Tazobactam (Sod 3.375 gm/ Dextrose) 50 mls @ 100 mls/hr IVPB Q8H-IV [facility]; Protocol Last Admin: 06/30/19 11:04 Dose: 100 mls/hr Levetiracetam (Keppra -) 250 mg PO BID [facility] Last Admin: 06/30/19 11:05 Dose: Not Given Olanzapine (Zyprexa -) 7.5 mg PO HS [facility] Last Admin: 06/29/19 23:50 Dose: 7.5 mg - Objective Vital Signs: Vital Signs Temperature 100.5 F H 06/30/19 10:30 Pulse Rate 87 06/30/19 10:30 Respiratory Rate 16 06/30/19 10:30 Blood Pressure 120/83 06/30/19 10:30 O2 Sat by Pulse Oximetry (%) 94 L 06/30/19 09:34 Constitutional: Yes: No Distress Eyes: Yes: Conjunctiva Clear Cardiovascular: Yes: Regular Rate and Rhythm, S1, S2 Respiratory: Yes: CTA Bilaterally Gastrointestinal: Yes: Normal Bowel Sounds, Soft. No: Tenderness Edema: No Labs: CBC, BMP 06/30/19 07:22 06/30/19 07:22 INR, PTT INR 1.18 (0.83-1.09) H 06/29/19 13:00 Assessment/Plan SEPSIS R/O HCAP AWAIT C/S CONTINUE EMPIRIC ZOSYN/ VANCOMYCIN
[2019-06-30] MEDS ORDERED: ACETAMINOPHEN 1000 MG/100 ML VIAL (NON FORMULARY) IVPB PRN (13:21)
[2019-06-30] MEDS: levETIRAcetam 500 MG/5 ML INJECTION VIAL IVPB SCH ×2 (13:41→21:02)
[2019-06-30] MEDS ORDERED: PT OWN MED DRAWER 7, Y5N ONE (20:07)
[2019-06-30] MEDS: OLANZAPINE 5 MG, OLANZAPINE 2.5 MG PO SCH (21:37)
[2019-06-30] MEDS: DEXTROSE 5%-0.45% SALINE 1,000 ML IV SCH (21:40)
[2019-07-01] MEDS ORDERED: PIPERACILLIN/TAZOBACTAM 3.375 GM VIAL IVPB ONE ×4 (01:08→21:36)
[2019-07-01] MEDS ORDERED: DEXTROSE 5%-WATER - 50 ML IVPB ONE ×4 (01:09→21:36)
[2019-07-01] MEDS: PIPERACILLIN/TAZOB 3.375 GM 3.375 GM in DEXTROSE 5%-WATER - 50 ML IVPB SCH ×3 (01:21→17:35)
[2019-07-01 07:39] LABS: BASO % 0.5 % (0-2.0); EOS % 4.1 % (0-4.5); HEMATOCRIT 36.5 % (35.4-49); HEMOGLOBIN 12.6 GM/dL (11.7-16.9); LYMPH % 18.2 % (8-40); MCH 34.7 pg (25.7-33.7); MCHC 34.5 g/dl (32.0-35.9); MEAN CELL VOLUME 100.4 fl (80-96); MEAN PLT VOLUME 8.3 fl (7.5-11.1); MONO % 17.6 % (3.8-10.2); NEUT % 59.6 % (42.8-82.8); PLATELET COUNT 164 K/MM3 (134-434); RBC 3.64 M/mm3 (4.00-5.60); RDW 14.3 % (11.9-15.9); WHITE BLOOD COUNT 5.4 K/mm3 (4.0-10.0)
[2019-07-01 08:10] LABS: ALBUMIN 2.6 g/dl (3.4-5.0); BILIRUBIN,TOTAL 0.7 mg/dL (0.2-1); BLOOD UREA NITROGEN 19.1 mg/dL (7-18); CALCIUM 8.1 mg/dL (8.5-10.1); CREATININE 1.3 mg/dL (0.55-1.3); POTASSIUM 3.5 mmol/L (3.5-5.1); TOT PROT 5.1 g/dl (6.4-8.2)
[2019-07-01] MEDS: VANCOMYCIN 1 GRAM (PRE-DOCKED) 1,000 MG/250 ML BAG IVPB SCH (08:37)
[2019-07-01] MEDS: levETIRAcetam 500 MG/5 ML INJECTION VIAL IVPB SCH (09:25)
[2019-07-01] MEDS: DONEPEZIL HCL 10 MG TABLET (FP) PO SCH (09:27)
[2019-07-01] MEDS: ALLOPURINOL 300 MG TABLET (FP) PO SCH (09:27)
[2019-07-01] MEDS: ENALAPRIL MALEATE 10 MG TABLET (FP) PO SCH (09:27)
[2019-07-01] MEDS: DEXTROSE 5%-0.45% SALINE 1,000 ML IV SCH ×2 (09:28→19:05)
--- NOTE | 2019-07-01 11:38 | PN ---
Progress Note, Physician History of Present Illness: MORE AWAKE AND ALERT OFFERS NO COMPLAINTS NO ACUTE DISTRESS BREATHING NON LABORED AFEBRILE WBC WNL BC NO GROWTH - Current Medication List Current Medications: Active Medications Acetaminophen (Ofirmev Injection -) 500 mg IVPB Q6H PRN PRN Reason: TEMP >100.5 *F Allopurinol (Zyloprim -) 300 mg PO DAILY [facility] Last Admin: 07/01/19 09:27 Dose: 300 mg Donepezil HCl (Aricept -) 10 mg PO DAILY [facility] Last Admin: 07/01/19 09:27 Dose: 10 mg Enalapril Maleate (Vasotec -) 20 mg PO DAILY [facility] Last Admin: 07/01/19 09:27 Dose: 20 mg Dextrose/Sodium Chloride (D5-1/2ns -) 1,000 mls @ 75 mls/hr IV ASDIR [facility] Last Admin: 07/01/19 09:28 Dose: 75 mls/hr Vancomycin HCl (Vancomycin (Pre-Docked)) 1,000 mg in 250 mls @ 166.667 mls/hr IVPB Q12H [facility]; Protocol Last Admin: 07/01/19 08:37 Dose: 166.667 mls/hr Piperacillin Sod/Tazobactam (Sod 3.375 gm/ Dextrose) 50 mls @ 100 mls/hr IVPB Q8H-IV [facility]; Protocol Last Admin: 07/01/19 09:27 Dose: 100 mls/hr Levetiracetam (Keppra Injection -) 250 mg IVPB BID [facility] Last Admin: 07/01/19 09:25 Dose: 250 mg Olanzapine 5 mg/ Olanzapine 2. (5 mg) 7.5 mg PO HS [facility] Last Admin: 06/30/19 21:37 Dose: 7.5 mg - Objective Vital Signs: Vital Signs Temperature 98.6 F 07/01/19 10:00 Pulse Rate 85 07/01/19 10:00 Respiratory Rate 18 07/01/19 10:00 Blood Pressure 133/81 07/01/19 10:00 O2 Sat by Pulse Oximetry (%) 95 07/01/19 10:00 Constitutional: Yes: No Distress Eyes: Yes: Conjunctiva Clear Cardiovascular: Yes: Regular Rate and Rhythm, S1, S2 Respiratory: Yes: Diminished Gastrointestinal: Yes: Normal Bowel Sounds, Soft. No: Tenderness Edema: No Labs: CBC, BMP 07/01/19 06:00 07/01/19 06:00 INR, PTT INR 1.18 (0.83-1.09) H 06/29/19 13:00 Assessment/Plan SEPSIS R/O HCAP CLINICALLY IMPROVED CONTINUE EMPIRIC ZOSYN
--- NOTE | 2019-07-01 17:47 | PN ---
Progress Note, Physician Chief Complaint: Patient seen and examined at the bedside, poor appetite, productive cough, able to say his full name and but doesn't recognize his . - Current Medication List Current Medications: Active Medications Acetaminophen (Ofirmev Injection -) 500 mg IVPB Q6H PRN PRN Reason: TEMP >100.5 *F Allopurinol (Zyloprim -) 300 mg PO DAILY [facility] Last Admin: 07/01/19 09:27 Dose: 300 mg Donepezil HCl (Aricept -) 10 mg PO DAILY [facility] Last Admin: 07/01/19 09:27 Dose: 10 mg Enalapril Maleate (Vasotec -) 20 mg PO DAILY [facility] Last Admin: 07/01/19 09:27 Dose: 20 mg Dextrose/Sodium Chloride (D5-1/2ns -) 1,000 mls @ 75 mls/hr IV ASDIR [facility] Last Admin: 07/01/19 09:28 Dose: 75 mls/hr Piperacillin Sod/Tazobactam (Sod 3.375 gm/ Dextrose) 50 mls @ 100 mls/hr IVPB Q8H-[facility]; Protocol Last Admin: 07/01/19 17:35 Dose: 100 mls/hr Levetiracetam (Keppra Injection -) 250 mg IVPB BID [facility] Last Admin: 07/01/19 09:25 Dose: 250 mg Olanzapine 5 mg/ Olanzapine 2. (5 mg) 7.5 mg PO HS [facility] Last Admin: 06/30/19 21:37 Dose: 7.5 mg - Objective Vital Signs: Vital Signs Temperature 98.5 F 07/01/19 14:00 Pulse Rate 78 07/01/19 14:00 Respiratory Rate 24 H 07/01/19 14:00 Blood Pressure 117/84 07/01/19 14:00 O2 Sat by Pulse Oximetry (%) 95 07/01/19 10:00 Constitutional: Yes: No Distress, Calm, Other (less lethargic, more receptive to simple questions) Eyes: Yes: Conjunctiva Clear, EOM Intact HENT: Yes: Atraumatic, Normocephalic Neck: Yes: Supple, Trachea Midline Cardiovascular: Yes: Regular Rate and Rhythm Respiratory: Yes: Regular, CTA Bilaterally, On Nasal O2, Rhonchi Gastrointestinal: Yes: Normal Bowel Sounds, Soft ...Rectal Exam: Yes: Deferred Genitourinary: Yes: WNL Breast(s): Yes: WNL Musculoskeletal: Yes: Muscle Weakness Extremities: Yes: WNL Edema: No Peripheral Pulses WNL: Yes Peripheral Pulses: Left Radial: 2+, Right Radial: 2+, Left Doralis Pedis: 2+, Right Dorsalis Pedis: 2+, Left Femoral: 2+, Right Femoral: 2+ Integumentary: Yes: WNL Neurological: Yes: Alert ...Motor Strength: LUE (generalized muscle weakness) Psychiatric: Yes: Alert Labs: CBC, BMP 07/01/19 06:00 07/01/19 06:00 INR, PTT INR 1.18 (0.83-1.09) H 06/29/19 13:00 - ....Imaging Other: Report Reviewed (Lab data reviewed, ID note read and appreciated) Problem List - Problems (1) Lethargy Code(s): R53.83 - OTHER FATIGUE (2) Acute respiratory failure Code(s): J96.00 - ACUTE RESPIRATORY FAILURE, UNSP W HYPOXIA OR HYPERCAPNIA Qualifiers: Respiratory failure complication: hypoxia Qualified Code(s): J96.01 - Acute respiratory failure with hypoxia (3) Febrile illness, acute Code(s): R50.9 - FEVER, UNSPECIFIED (4) Lactic acidosis Code(s): E87.2 - ACIDOSIS (5) Pneumonia Code(s): J18.9 - PNEUMONIA, UNSPECIFIED ORGANISM (6) Unwitnessed fall Code(s): R29.6 - REPEATED FALLS (7) Acute sepsis Code(s): A41.9 - SEPSIS, UNSPECIFIED ORGANISM Assessment/Plan Assessment/plan: acute fever, acute lethargy, acute presumed community acquired pneumonia, acute hypokalemia; IV fluids, IV potassium chloride, IV Piperacillin , Mucinex, SCD'S for DVT prophylaxis, chopped diet, physical therapy.
[2019-07-01] MEDS: KCL 10 MEQ IVPB 10 MEQ/100 ML INFUS.BAG IVPB SCH ×3 (19:05→23:23)
[2019-07-01] MEDS: levETIRAcetam 250 MG TABLET PO SCH (21:42)
[2019-07-01] MEDS: guaiFENesin 600 MG TABLET.ER (FP) PO SCH (21:42)
[2019-07-01] MEDS: OLANZAPINE 5 MG, OLANZAPINE 2.5 MG PO SCH (21:52)
[2019-07-02] MEDS: PIPERACILLIN/TAZOB 3.375 GM 3.375 GM in DEXTROSE 5%-WATER - 50 ML IVPB SCH ×3 (02:22→17:06)
[2019-07-02] MEDS: DEXTROSE 5%-0.45% SALINE 1,000 ML IV SCH (06:03)
[2019-07-02 06:58] LABS: BASO % 0.5 % (0-2.0); EOS % 3.3 % (0-4.5); HEMATOCRIT 38.7 % (35.4-49); HEMOGLOBIN 13.2 GM/dL (11.7-16.9); LYMPH % 15.3 % (8-40); MCH 34.9 pg (25.7-33.7); MCHC 34.2 g/dl (32.0-35.9); MONO % 13.6 % (3.8-10.2); NEUT % 67.3 % (42.8-82.8); PLATELET COUNT 186 K/MM3 (134-434); RBC 3.79 M/mm3 (4.00-5.60); RDW 14.3 % (11.9-15.9); WHITE BLOOD COUNT 6.7 K/mm3 (4.0-10.0)
[2019-07-02 07:35] LABS: ALBUMIN 2.7 g/dl (3.4-5.0); BILIRUBIN,TOTAL 1.1 mg/dL (0.2-1); BLOOD UREA NITROGEN 15.1 mg/dL (7-18); CALCIUM 8.5 mg/dL (8.5-10.1); CREATININE 1.4 mg/dL (0.55-1.3); POTASSIUM 3.7 mmol/L (3.5-5.1); TOT PROT 5.6 g/dl (6.4-8.2)
[2019-07-02] MEDS ORDERED: PIPERACILLIN/TAZOBACTAM 3.375 GM VIAL IVPB ONE ×2 (08:36→15:46)
[2019-07-02] MEDS ORDERED: DEXTROSE 5%-WATER - 50 ML IVPB ONE ×2 (08:36→15:46)
[2019-07-02] MEDS: ALLOPURINOL 300 MG TABLET (FP) PO SCH ×2 (09:42→09:56)
[2019-07-02] MEDS: ENALAPRIL MALEATE 10 MG TABLET (FP) PO SCH ×2 (09:42→09:56)
[2019-07-02] MEDS: levETIRAcetam 250 MG TABLET PO SCH ×2 (09:42→09:55)
[2019-07-02] MEDS: guaiFENesin 600 MG TABLET.ER (FP) PO SCH ×4 (09:43→22:24)
[2019-07-02] MEDS: DONEPEZIL HCL 10 MG TABLET (FP) PO SCH ×2 (09:43→09:56)
[2019-07-02] MEDS ORDERED: METOPROLOL TARTRATE 5 MG/5 ML VIAL IVPUSH PRN (10:00)
--- NOTE | 2019-07-02 10:08 | PN ---
Progress Note, Physician Chief Complaint: Patient seen and examined at the bedside in ICU, awake, alert, poor appetite, refusing to take oral meds. History of Present Illness: This 84 yr old w/m with hx of amyloid cerebral angiopathy, dementia, prostate cancer, HTN, DNR/DNI, and seizures admitted via ER with an acute lethargy, an acute fever, and congestion. - Current Medication List Current Medications: Active Medications Acetaminophen (Ofirmev Injection -) 500 mg IVPB Q6H PRN PRN Reason: TEMP >100.5 *F Allopurinol (Zyloprim -) 300 mg PO DAILY [facility] Last Admin: 07/02/19 09:56 Dose: Not Given Donepezil HCl (Aricept -) 10 mg PO DAILY [facility] Last Admin: 07/02/19 09:56 Dose: Not Given Enalapril Maleate (Vasotec -) 20 mg PO DAILY [facility] Last Admin: 07/02/19 09:56 Dose: Not Given Guaifenesin (Mucinex -) 600 mg PO BID [facility] Last Admin: 07/02/19 09:54 Dose: Not Given Piperacillin Sod/Tazobactam (Sod 3.375 gm/ Dextrose) 50 mls @ 100 mls/hr IVPB Q8H-IV [facility]; Protocol Last Admin: 07/02/19 09:42 Dose: 100 mls/hr Dextrose/Sodium Chloride (D5-1/2ns -) 1,000 mls @ 50 mls/hr IV ASDIR [facility] Last Admin: 07/02/19 06:03 Dose: 50 mls/hr Levetiracetam (Keppra Injection -) 250 mg IVPB BID [facility] Metoprolol Tartrate (Lopressor Injection -) 5 mg IVPUSH Q8H PRN PRN Reason: HYPERTENSION Olanzapine 5 mg/ Olanzapine 2. (5 mg) 7.5 mg PO HS [facility] Last Admin: 07/01/19 21:52 Dose: 7.5 mg - Objective Vital Signs: Vital Signs Temperature 98.4 F 07/02/19 06:00 Pulse Rate 77 07/02/19 06:00 Respiratory Rate 23 H 07/02/19 06:00 Blood Pressure 151/89 07/02/19 06:00 O2 Sat by Pulse Oximetry (%) 95 07/01/19 21:14 Constitutional: Yes: Well Nourished, No Distress, Calm Eyes: Yes: Conjunctiva Clear, EOM Intact HENT: Yes: Atraumatic, Normocephalic Neck: Yes: Supple, Trachea Midline Cardiovascular: Yes: Regular Rate and Rhythm Respiratory: Yes: Regular, CTA Bilaterally, On Nasal O2, Rhonchi Gastrointestinal: Yes: Normal Bowel Sounds, Soft ...Rectal Exam: Yes: Deferred Genitourinary: Yes: WNL Breast(s): Yes: WNL Musculoskeletal: Yes: Muscle Weakness Extremities: Yes: WNL Edema: No Peripheral Pulses WNL: Yes Peripheral Pulses: Left Radial: 2+, Right Radial: 2+, Left Doralis Pedis: 2+, Right Dorsalis Pedis: 2+, Left Femoral: 2+, Right Femoral: 2+ Integumentary: Yes: WNL Neurological: Yes: Alert ...Motor Strength: LUE (generalized muscle weakness of all extremities) Psychiatric: Yes: Alert Labs: CBC, BMP 07/02/19 05:50 07/02/19 05:50 INR, PTT INR 1.18 (0.83-1.09) H 06/29/19 13:00 - ....Imaging Chest X-ray: Report Reviewed Other: Report Reviewed (Lab data reviewed) Problem List - Problems (1) Lethargy Code(s): R53.83 - OTHER FATIGUE (2) Acute respiratory failure Code(s): J96.00 - ACUTE RESPIRATORY FAILURE, UNSP W HYPOXIA OR HYPERCAPNIA Qualifiers: Respiratory failure complication: hypoxia Qualified Code(s): J96.01 - Acute respiratory failure with hypoxia (3) Febrile illness, acute Code(s): R50.9 - FEVER, UNSPECIFIED (4) Lactic acidosis Code(s): E87.2 - ACIDOSIS (5) Pneumonia Code(s): J18.9 - PNEUMONIA, UNSPECIFIED ORGANISM (6) Unwitnessed fall Code(s): R29.6 - REPEATED FALLS (7) Acute sepsis Code(s): A41.9 - SEPSIS, UNSPECIFIED ORGANISM Assessment/Plan Assessment/plan: acute fever, acute lethargy, acute presumed community acquired pneumonia; IV fluids, IV Piperacillin, physical therapy, SCD'S for DVT prophylaxis, oxygen 2L/via nasal cannula to maintain oxygen sat above 90%.
--- NOTE | 2019-07-02 10:16 | PN ---
Progress Note, Physician History of Present Illness: AWAKE AND ALERT BUT CONFUSED OFFERS NO COMPLAINTS NO ACUTE DISTRESS BREATHING NON LABORED STACY GRADE TEMP WBC WNL BC NO GROWTH - Current Medication List Current Medications: Active Medications Acetaminophen (Ofirmev Injection -) 500 mg IVPB Q6H PRN PRN Reason: TEMP >100.5 *F Allopurinol (Zyloprim -) 300 mg PO DAILY [facility] Last Admin: 07/02/19 09:56 Dose: Not Given Donepezil HCl (Aricept -) 10 mg PO DAILY [facility] Last Admin: 07/02/19 09:56 Dose: Not Given Enalapril Maleate (Vasotec -) 20 mg PO DAILY [facility] Last Admin: 07/02/19 09:56 Dose: Not Given Guaifenesin (Mucinex -) 600 mg PO BID [facility] Last Admin: 07/02/19 09:54 Dose: Not Given Piperacillin Sod/Tazobactam (Sod 3.375 gm/ Dextrose) 50 mls @ 100 mls/hr IVPB Q8H-IV BECKY; Protocol Last Admin: 07/02/19 09:42 Dose: 100 mls/hr Dextrose/Sodium Chloride (D5-1/2ns -) 1,000 mls @ 50 mls/hr IV ASDIR [facility] Last Admin: 07/02/19 06:03 Dose: 50 mls/hr Levetiracetam (Keppra Injection -) 250 mg IVPB BID [facility] Metoprolol Tartrate (Lopressor Injection -) 5 mg IVPUSH Q8H PRN PRN Reason: HYPERTENSION Olanzapine 5 mg/ Olanzapine 2. (5 mg) 7.5 mg PO HS [facility] Last Admin: 07/01/19 21:52 Dose: 7.5 mg - Objective Vital Signs: Vital Signs Temperature 98.4 F 07/02/19 06:00 Pulse Rate 77 07/02/19 06:00 Respiratory Rate 23 H 07/02/19 06:00 Blood Pressure 151/89 07/02/19 06:00 O2 Sat by Pulse Oximetry (%) 95 07/01/19 21:14 Constitutional: Yes: No Distress Eyes: Yes: Conjunctiva Clear Cardiovascular: Yes: Regular Rate and Rhythm, S1, S2 Respiratory: Yes: Diminished Gastrointestinal: Yes: Normal Bowel Sounds, Soft. No: Tenderness Edema: No Labs: CBC, BMP 07/02/19 05:50 07/02/19 05:50 INR, PTT INR 1.18 (0.83-1.09) H 06/29/19 13:00 Assessment/Plan SEPSIS IMPROVED ? HCAP ? VIRAL SYNDROME LACTIC ACIDOSIS IMPROVED OBS CLINICALLY IMPROVED CONTINUE EMPIRIC ZOSYN DAY #4
[2019-07-02] MEDS: levETIRAcetam 500 MG/5 ML INJECTION VIAL IVPB SCH ×2 (10:41→22:24)
[2019-07-02] MEDS: OLANZAPINE 5 MG, OLANZAPINE 2.5 MG PO SCH ×2 (22:00→22:25)
[2019-07-02] MEDS ORDERED: PT OWN MED DRAWER 7, Y5N ONE (22:22)
[2019-07-03] MEDS ORDERED: DEXTROSE 5%-WATER - 50 ML IVPB ONE ×3 (02:53→18:12)
[2019-07-03] MEDS ORDERED: PIPERACILLIN/TAZOBACTAM 3.375 GM VIAL IVPB ONE ×3 (02:53→18:12)
[2019-07-03] MEDS: PIPERACILLIN/TAZOB 3.375 GM 3.375 GM in DEXTROSE 5%-WATER - 50 ML IVPB SCH ×3 (02:57→18:10)
[2019-07-03] MEDS: DEXTROSE 5%-0.45% SALINE 1,000 ML IV SCH ×3 (03:00→18:09)
--- NOTE | 2019-07-03 09:01 | PN ---
Progress Note, Physician Chief Complaint: Patient seen and examined at the bedside in ICU, appetite better today, no labored breathing, no congestion. History of Present Illness: This 84 yr old w/m with hx of cerebral amyloid angiopathy, dementia, hypertension, prostate cancer, DNR/DNI admitted via ER with acute sepsis, acute fever, acute lethargy, acute healthcare acquired infection. - Current Medication List Current Medications: Active Medications Acetaminophen (Ofirmev Injection -) 500 mg IVPB Q6H PRN PRN Reason: TEMP >100.5 *F Allopurinol (Zyloprim -) 300 mg PO DAILY [facility] Last Admin: 07/02/19 09:56 Dose: Not Given Donepezil HCl (Aricept -) 10 mg PO DAILY [facility] Last Admin: 07/02/19 09:56 Dose: Not Given Enalapril Maleate (Vasotec -) 20 mg PO DAILY [facility] Last Admin: 07/02/19 09:56 Dose: Not Given Guaifenesin (Mucinex -) 600 mg PO BID [facility] Last Admin: 07/02/19 22:00 Dose: Not Given Piperacillin Sod/Tazobactam (Sod 3.375 gm/ Dextrose) 50 mls @ 100 mls/hr IVPB Q8H-IV BECKY; Protocol Last Admin: 07/03/19 02:57 Dose: 100 mls/hr Dextrose/Sodium Chloride (D5-1/2ns -) 1,000 mls @ 50 mls/hr IV ASDIR [facility] Last Admin: 07/03/19 03:00 Dose: 50 mls/hr Levetiracetam (Keppra Injection -) 250 mg IVPB BID [facility] Last Admin: 07/02/19 22:24 Dose: 250 mg Metoprolol Tartrate (Lopressor Injection -) 5 mg IVPUSH Q8H PRN PRN Reason: HYPERTENSION Olanzapine 5 mg/ Olanzapine 2. (5 mg) 7.5 mg PO HS [facility] Last Admin: 07/02/19 22:00 Dose: Not Given - Objective Vital Signs: Vital Signs Temperature 99.2 F 07/03/19 04:00 Pulse Rate 90 07/03/19 08:00 Respiratory Rate 18 07/03/19 08:00 Blood Pressure 120/98 07/03/19 08:00 O2 Sat by Pulse Oximetry (%) 99 07/02/19 22:00 Constitutional: Yes: Well Nourished, No Distress, Calm Eyes: Yes: Conjunctiva Clear, EOM Intact HENT: Yes: Atraumatic, Normocephalic Neck: Yes: Supple, Trachea Midline Cardiovascular: Yes: Regular Rate and Rhythm Respiratory: Yes: Regular, CTA Bilaterally Gastrointestinal: Yes: Normal Bowel Sounds, Soft ...Rectal Exam: Yes: Deferred Genitourinary: Yes: Incontinence Breast(s): Yes: WNL Musculoskeletal: Yes: WNL Edema: No Peripheral Pulses WNL: Yes Peripheral Pulses: Left Radial: 2+, Right Radial: 2+, Left Doralis Pedis: 2+, Right Dorsalis Pedis: 2+, Left Femoral: 2+, Right Femoral: 2+ Integumentary: Yes: WNL Neurological: Yes: Alert, Weakness ...Motor Strength: LUE (generalized muscle weakness) Psychiatric: Yes: Alert Labs: CBC, BMP 07/02/19 05:50 07/02/19 05:50 INR, PTT INR 1.18 (0.83-1.09) H 06/29/19 13:00 Problem List - Problems (1) Lethargy Code(s): R53.83 - OTHER FATIGUE (2) Acute respiratory failure Code(s): J96.00 - ACUTE RESPIRATORY FAILURE, UNSP W HYPOXIA OR HYPERCAPNIA Qualifiers: Respiratory failure complication: hypoxia Qualified Code(s): J96.01 - Acute respiratory failure with hypoxia (3) Febrile illness, acute Code(s): R50.9 - FEVER, UNSPECIFIED (4) Lactic acidosis Code(s): E87.2 - ACIDOSIS (5) Pneumonia Code(s): J18.9 - PNEUMONIA, UNSPECIFIED ORGANISM (6) Unwitnessed fall Code(s): R29.6 - REPEATED FALLS (7) Acute sepsis Code(s): A41.9 - SEPSIS, UNSPECIFIED ORGANISM Assessment/Plan Assessment/plan: acute sepsis, acute healthcare acquired infection, ? acute viral syndrome, acute transaminasemia; IV fluids, IV Piperacillin, DVT prophylaxis, SCD'S, physical therapy, oxygen 2L/min via nasal cannula.
[2019-07-03] MEDS ORDERED: PT OWN MED DRAWER 7, Y5N ONE (09:31)
[2019-07-03] MEDS: levETIRAcetam 500 MG/5 ML INJECTION VIAL IVPB SCH ×2 (09:34→22:06)
[2019-07-03] MEDS: DONEPEZIL HCL 10 MG TABLET (FP) PO SCH (09:34)
[2019-07-03] MEDS: guaiFENesin 600 MG TABLET.ER (FP) PO SCH (09:36)
[2019-07-03] MEDS: ENALAPRIL MALEATE 10 MG TABLET (FP) PO SCH (09:37)
[2019-07-03] MEDS: ALLOPURINOL 300 MG TABLET (FP) PO SCH (09:37)
[2019-07-03] MEDS ORDERED: ACETAMINOPHEN 500 MG TABLET (FP) PO PRN (14:48)
[2019-07-03 17:34] LABS: BASO % 0.2 % (0-2.0); EOS % 2.4 % (0-4.5); HEMATOCRIT 39.1 % (35.4-49); HEMOGLOBIN 13.3 GM/dL (11.7-16.9); LYMPH % 13.5 % (8-40); MCH 34.3 pg (25.7-33.7); MCHC 33.9 g/dl (32.0-35.9); MEAN CELL VOLUME 101.1 fl (80-96); MEAN PLT VOLUME 7.9 fl (7.5-11.1); MONO % 13.6 % (3.8-10.2); NEUT % 70.3 % (42.8-82.8); PLATELET COUNT 240 K/MM3 (134-434); RBC 3.87 M/mm3 (4.00-5.60); WHITE BLOOD COUNT 8.8 K/mm3 (4.0-10.0)
--- NOTE | 2019-07-03 17:36 | PN ---
Progress Note, Physician History of Present Illness: AWAKE AND ALERT BUT CONFUSED OFFERS NO COMPLAINTS NO ACUTE DISTRESS BREATHING NON LABORED + MOIST COUGH NOTED AFEBRILE WBC WNL BC NO GROWTH - Current Medication List Current Medications: Active Medications Acetaminophen (Tylenol -) 500 mg PO Q6H PRN PRN Reason: TEMP > 100.5 F Allopurinol (Zyloprim -) 300 mg PO DAILY [facility] Last Admin: 07/03/19 09:37 Dose: 300 mg Donepezil HCl (Aricept -) 10 mg PO DAILY [facility] Last Admin: 07/03/19 09:34 Dose: 10 mg Enalapril Maleate (Vasotec -) 20 mg PO DAILY [facility] Last Admin: 07/03/19 09:37 Dose: 20 mg Guaifenesin (Mucinex -) 600 mg PO BID [facility] Last Admin: 07/03/19 09:36 Dose: 600 mg Piperacillin Sod/Tazobactam (Sod 3.375 gm/ Dextrose) 50 mls @ 100 mls/hr IVPB Q8H-IV BECKY; Protocol Last Admin: 07/03/19 09:37 Dose: 100 mls/hr Dextrose/Sodium Chloride (D5-1/2ns -) 1,000 mls @ 60 mls/hr IV ASDIR [facility] Levetiracetam (Keppra Injection -) 250 mg IVPB BID [facility] Last Admin: 07/03/19 09:34 Dose: 250 mg Metoprolol Tartrate (Lopressor Injection -) 5 mg IVPUSH Q8H PRN PRN Reason: HYPERTENSION Olanzapine 5 mg/ Olanzapine 2. (5 mg) 7.5 mg PO HS [facility] Last Admin: 07/02/19 22:00 Dose: Not Given - Objective Vital Signs: Vital Signs Temperature 98.8 F 07/03/19 15:55 Pulse Rate 92 H 07/03/19 15:55 Respiratory Rate 26 H 07/03/19 15:55 Blood Pressure 115/78 07/03/19 15:55 O2 Sat by Pulse Oximetry (%) 96 07/03/19 09:00 Constitutional: Yes: No Distress Cardiovascular: Yes: Regular Rate and Rhythm, S1, S2 Respiratory: Yes: Rhonchi Gastrointestinal: Yes: Normal Bowel Sounds, Soft. No: Tenderness Edema: No Labs: INR, PTT INR 1.18 (0.83-1.09) H 06/29/19 13:00 Assessment/Plan SEPSIS IMPROVED ? HCAP ? VIRAL SYNDROME LACTIC ACIDOSIS IMPROVED OBS CLINICALLY IMPROVED CONTINUE EMPIRIC ZOSYN
[2019-07-03 17:58] LABS: ALBUMIN 2.4 g/dl (3.4-5.0); BILIRUBIN,TOTAL 0.5 mg/dL (0.2-1); BLOOD UREA NITROGEN 16.8 mg/dL (7-18); CREATININE 1.3 mg/dL (0.55-1.3); POTASSIUM 4.1 mmol/L (3.5-5.1); TOT PROT 5.4 g/dl (6.4-8.2)
[2019-07-03] MEDS: OLANZAPINE 5 MG, OLANZAPINE 2.5 MG PO SCH (22:07)
[2019-07-04] MEDS: PIPERACILLIN/TAZOB 3.375 GM 3.375 GM in DEXTROSE 5%-WATER - 50 ML IVPB SCH ×3 (02:00→17:13)
[2019-07-04] MEDS ORDERED: DEXTROSE 5%-WATER - 100 ML IVPB ONE (03:26)
[2019-07-04] MEDS ORDERED: PIPERACILLIN/TAZOBACTAM 3.375 GM VIAL IVPB ONE ×3 (03:26→09:32)
[2019-07-04 06:35] LABS: BASO % 0.4 % (0-2.0); EOS % 4.1 % (0-4.5); HEMATOCRIT 37.6 % (35.4-49); HEMOGLOBIN 12.6 GM/dL (11.7-16.9); LYMPH % 15.9 % (8-40); MCHC 33.4 g/dl (32.0-35.9); MEAN CELL VOLUME 101.9 fl (80-96); MEAN PLT VOLUME 7.9 fl (7.5-11.1); MONO % 15.3 % (3.8-10.2); NEUT % 64.3 % (42.8-82.8); PLATELET COUNT 233 K/MM3 (134-434); RBC 3.69 M/mm3 (4.00-5.60); RDW 14.2 % (11.9-15.9); WHITE BLOOD COUNT 6.8 K/mm3 (4.0-10.0)
[2019-07-04 07:03] LABS: ALBUMIN 2.3 g/dl (3.4-5.0); BILIRUBIN,TOTAL 0.5 mg/dL (0.2-1); BLOOD UREA NITROGEN 16.9 mg/dL (7-18); CALCIUM 8.4 mg/dL (8.5-10.1); CREATININE 1.1 mg/dL (0.55-1.3); POTASSIUM 3.9 mmol/L (3.5-5.1); TOT PROT 5.1 g/dl (6.4-8.2)
--- NOTE | 2019-07-04 09:20 | PN ---
Progress Note, Physician Chief Complaint: Patient seen and examined at the bedside in ICU, awake and alert, no labored breathing, does not appear to be in any discomfort. History of Present Illness: This 84 yr old w/m with hx of cerebral amyloid angiopathy, progressive dementia , hypertension, prostate cancer admitted via ER with an acute sepsis, an acute healthcare associated infection, an acute fever, an acute lethargy, and an acute congestion - Current Medication List Current Medications: Active Medications Acetaminophen (Tylenol -) 500 mg PO Q6H PRN PRN Reason: TEMP > 100.5 F Last Admin: 07/03/19 22:06 Dose: 500 mg Allopurinol (Zyloprim -) 300 mg PO DAILY [facility] Last Admin: 07/03/19 09:37 Dose: 300 mg Donepezil HCl (Aricept -) 10 mg PO DAILY [facility] Last Admin: 07/03/19 09:34 Dose: 10 mg Enalapril Maleate (Vasotec -) 20 mg PO DAILY [facility] Last Admin: 07/03/19 09:37 Dose: 20 mg Piperacillin Sod/Tazobactam (Sod 3.375 gm/ Dextrose) 50 mls @ 100 mls/hr IVPB Q8H-IV BECKY; Protocol Last Admin: 07/04/19 02:00 Dose: 100 mls/hr Dextrose/Sodium Chloride (D5-1/2ns -) 1,000 mls @ 60 mls/hr IV ASDIR [facility] Last Admin: 07/03/19 18:09 Dose: 60 mls/hr Levetiracetam (Keppra Injection -) 250 mg IVPB BID [facility] Last Admin: 07/03/19 22:06 Dose: 250 mg Metoprolol Tartrate (Lopressor Injection -) 5 mg IVPUSH Q8H PRN PRN Reason: HYPERTENSION Olanzapine 5 mg/ Olanzapine 2. (5 mg) 7.5 mg PO HS [facility] Last Admin: 07/03/19 22:07 Dose: 7.5 mg - Objective Vital Signs: Vital Signs Temperature 98.1 F 07/04/19 06:00 Pulse Rate 76 07/04/19 09:11 Respiratory Rate 20 07/04/19 09:11 Blood Pressure 100/70 07/04/19 09:11 O2 Sat by Pulse Oximetry (%) 96 07/04/19 09:00 Constitutional: Yes: Well Nourished, No Distress, Calm Eyes: Yes: Conjunctiva Clear, EOM Intact HENT: Yes: Atraumatic, Normocephalic Neck: Yes: Supple, Trachea Midline Cardiovascular: Yes: Regular Rate and Rhythm Respiratory: Yes: Regular, CTA Bilaterally Gastrointestinal: Yes: Normal Bowel Sounds, Soft ...Rectal Exam: Yes: Deferred Genitourinary: Yes: WNL Musculoskeletal: Yes: Muscle Weakness Extremities: Yes: Other (generalized muscle weakness) Edema: No Peripheral Pulses WNL: Yes Peripheral Pulses: Left Radial: 2+, Right Radial: 2+, Left Doralis Pedis: 2+, Right Dorsalis Pedis: 2+, Left Femoral: 2+, Right Femoral: 2+ Integumentary: Yes: WNL Neurological: Yes: Alert ...Motor Strength: LUE (generalized muscle weakness of all extremities) Psychiatric: Yes: Alert Labs: CBC, BMP 07/04/19 05:30 07/04/19 05:30 INR, PTT INR 1.18 (0.83-1.09) H 06/29/19 13:00 - ....Imaging Other: Report Reviewed (Lab data reviewed) Problem List - Problems (1) Lethargy Code(s): R53.83 - OTHER FATIGUE (2) Acute respiratory failure Code(s): J96.00 - ACUTE RESPIRATORY FAILURE, UNSP W HYPOXIA OR HYPERCAPNIA Qualifiers: Respiratory failure complication: hypoxia Qualified Code(s): J96.01 - Acute respiratory failure with hypoxia (3) Febrile illness, acute Code(s): R50.9 - FEVER, UNSPECIFIED (4) Lactic acidosis Code(s): E87.2 - ACIDOSIS (5) Pneumonia Code(s): J18.9 - PNEUMONIA, UNSPECIFIED ORGANISM (6) Unwitnessed fall Code(s): R29.6 - REPEATED FALLS (7) Acute sepsis Code(s): A41.9 - SEPSIS, UNSPECIFIED ORGANISM (8) Transaminasemia Code(s): R74.0 - NONSPEC ELEV OF LEVELS OF TRANSAMNS & LACTIC ACID DEHYDRGNSE Assessment/Plan Assessment/plan: acute sepsis, acute healthcare associated infection, acute fever, acute lethargy, acute congestion, acute transaminasemia; IV fluids, IV Piperacillin, SCD'S, DVT prophylaxis, physical therapy.
[2019-07-04] MEDS ORDERED: DEXTROSE 5%-WATER - 50 ML IVPB ONE (09:32)
[2019-07-04] MEDS: ENALAPRIL MALEATE 10 MG TABLET (FP) PO SCH (10:48)
[2019-07-04] MEDS: levETIRAcetam 500 MG/5 ML INJECTION VIAL IVPB SCH ×2 (10:49→21:40)
[2019-07-04] MEDS: DONEPEZIL HCL 10 MG TABLET (FP) PO SCH (10:50)
[2019-07-04] MEDS: ALLOPURINOL 300 MG TABLET (FP) PO SCH (10:50)
--- NOTE | 2019-07-04 11:41 | PN ---
Progress Note, Physician History of Present Illness: LETHARGIC TODAY NO ACUTE DISTRESS BREATHING NON LABORED AFEBRILE WBC WNL BC NO GROWTH - Current Medication List Current Medications: Active Medications Acetaminophen (Tylenol -) 500 mg PO Q6H PRN PRN Reason: TEMP > 100.5 F Last Admin: 07/03/19 22:06 Dose: 500 mg Allopurinol (Zyloprim -) 300 mg PO DAILY [facility] Last Admin: 07/04/19 10:50 Dose: 300 mg Donepezil HCl (Aricept -) 10 mg PO DAILY [facility] Last Admin: 07/04/19 10:50 Dose: 10 mg Enalapril Maleate (Vasotec -) 20 mg PO DAILY [facility] Last Admin: 07/04/19 10:48 Dose: 20 mg Piperacillin Sod/Tazobactam (Sod 3.375 gm/ Dextrose) 50 mls @ 100 mls/hr IVPB Q8H-IV BECKY; Protocol Last Admin: 07/04/19 10:47 Dose: 100 mls/hr Dextrose/Sodium Chloride (D5-1/2ns -) 1,000 mls @ 60 mls/hr IV ASDIR [facility] Last Admin: 07/03/19 18:09 Dose: 60 mls/hr Levetiracetam (Keppra Injection -) 250 mg IVPB BID [facility] Last Admin: 07/04/19 10:49 Dose: 250 mg Metoprolol Tartrate (Lopressor Injection -) 5 mg IVPUSH Q8H PRN PRN Reason: HYPERTENSION Olanzapine 5 mg/ Olanzapine 2. (5 mg) 7.5 mg PO HS [facility] Last Admin: 07/03/19 22:07 Dose: 7.5 mg - Objective Vital Signs: Vital Signs Temperature 98.1 F 07/04/19 06:00 Pulse Rate 76 07/04/19 09:11 Respiratory Rate 20 07/04/19 09:11 Blood Pressure 100/70 07/04/19 09:11 O2 Sat by Pulse Oximetry (%) 96 07/04/19 09:00 Constitutional: Yes: No Distress Cardiovascular: Yes: Regular Rate and Rhythm, S1, S2 Respiratory: Yes: Diminished Gastrointestinal: Yes: Normal Bowel Sounds, Soft. No: Tenderness Edema: No Labs: CBC, BMP 07/04/19 05:30 07/04/19 05:30 INR, PTT INR 1.18 (0.83-1.09) H 06/29/19 13:00 Assessment/Plan SEPSIS IMPROVED ? HCAP ? VIRAL SYNDROME LACTIC ACIDOSIS RESOLVED OBS CONTINUE EMPIRIC ZOSYN
[2019-07-04] MEDS: DEXTROSE 5%-0.45% SALINE 1,000 ML IV SCH ×2 (16:00→21:44)
[2019-07-04] MEDS ORDERED: PT OWN MED DRAWER 7, Y5N ONE ×2 (18:12→21:34)
[2019-07-04] MEDS: OLANZAPINE 5 MG, OLANZAPINE 2.5 MG PO SCH (21:39)
[2019-07-05] MEDS ORDERED: DEXTROSE 5%-WATER - 50 ML IVPB ONE ×2 (01:13→10:11)
[2019-07-05] MEDS ORDERED: PIPERACILLIN/TAZOBACTAM 3.375 GM VIAL IVPB ONE ×2 (01:13→10:10)
[2019-07-05] MEDS: PIPERACILLIN/TAZOB 3.375 GM 3.375 GM in DEXTROSE 5%-WATER - 50 ML IVPB SCH ×2 (01:30→10:13)
[2019-07-05] MEDS: ALLOPURINOL 300 MG TABLET (FP) PO SCH (10:13)
[2019-07-05] MEDS: ENALAPRIL MALEATE 10 MG TABLET (FP) PO SCH (10:13)
[2019-07-05] MEDS: DONEPEZIL HCL 10 MG TABLET (FP) PO SCH (10:13)
[2019-07-05] MEDS: levETIRAcetam 500 MG/5 ML INJECTION VIAL IVPB SCH ×2 (10:14→22:46)
--- NOTE | 2019-07-05 17:35 | PN ---
Progress Note, Physician History of Present Illness: LETHARGIC AROUSABLE BUT CONFUSED NO ACUTE DISTRESS BREATHING NON LABORED AFEBRILE WBC WNL BC NO GROWTH - Current Medication List Current Medications: Active Medications Acetaminophen (Tylenol -) 500 mg PO Q6H PRN PRN Reason: TEMP > 100.5 F Last Admin: 07/03/19 22:06 Dose: 500 mg Allopurinol (Zyloprim -) 300 mg PO DAILY [facility] Last Admin: 07/05/19 10:13 Dose: 300 mg Amoxicillin/Clavulanate Potassium (Augmentin - 875mg Tablet) 1 tab PO BID@0800, 1730 [facility] Donepezil HCl (Aricept -) 10 mg PO DAILY [facility] Last Admin: 07/05/19 10:13 Dose: 10 mg Enalapril Maleate (Vasotec -) 20 mg PO DAILY [facility] Last Admin: 07/05/19 10:13 Dose: 20 mg Dextrose/Sodium Chloride (D5-1/2ns -) 1,000 mls @ 60 mls/hr IV ASDIR [facility] Last Admin: 07/04/19 21:44 Dose: 60 mls/hr Levetiracetam (Keppra Injection -) 250 mg IVPB BID [facility] Last Admin: 07/05/19 10:14 Dose: 250 mg Metoprolol Tartrate (Lopressor Injection -) 5 mg IVPUSH Q8H PRN PRN Reason: HYPERTENSION Olanzapine 5 mg/ Olanzapine 2. (5 mg) 7.5 mg PO HS [facility] Last Admin: 07/04/19 21:39 Dose: 7.5 mg - Objective Vital Signs: Vital Signs Temperature 97.6 F 07/05/19 14:00 Pulse Rate 76 07/05/19 16:00 Respiratory Rate 16 07/05/19 16:00 Blood Pressure 124/84 07/05/19 16:00 O2 Sat by Pulse Oximetry (%) 100 07/05/19 09:00 Constitutional: Yes: No Distress Eyes: Yes: Conjunctiva Clear Cardiovascular: Yes: Regular Rate and Rhythm, S1, S2 Respiratory: Yes: Diminished Gastrointestinal: Yes: Normal Bowel Sounds, Soft. No: Tenderness Edema: No Labs: CBC, BMP 07/04/19 05:30 07/04/19 05:30 INR, PTT INR 1.18 (0.83-1.09) H 06/29/19 13:00 Assessment/Plan SEPSIS IMPROVED ? HCAP ? VIRAL SYNDROME LACTIC ACIDOSIS RESOLVED OBS SUBSTITUTE PO AUGEMNTIN X 3D
[2019-07-05] MEDS: DEXTROSE 5%-0.45% SALINE 1,000 ML IV SCH ×2 (17:39→22:46)
[2019-07-05] MEDS: AMOX TR/POT CLAV 875MG/125MG TABLETS (FP) PO SCH (18:27)
--- NOTE | 2019-07-05 19:03 | PN ---
Progress Note, Physician Chief Complaint: Patient seen and examined at the bedside in ICU, poor appetite, no labored breathing, does not appear to be in any acute distress. History of Present Illness: This 84 yr old w/m with hx of cerebral amyloid angiopathy, progressive dementia , hypertension, and prostate cancer admitted via ER with acute sepsis, ?acute viral syndrome, ?acute healthcare acquired infection. - Current Medication List Current Medications: Active Medications Acetaminophen (Tylenol -) 500 mg PO Q6H PRN PRN Reason: TEMP > 100.5 F Last Admin: 07/03/19 22:06 Dose: 500 mg Allopurinol (Zyloprim -) 300 mg PO DAILY [facility] Last Admin: 07/05/19 10:13 Dose: 300 mg Amoxicillin/Clavulanate Potassium (Augmentin - 875mg Tablet) 1 tab PO BID@0800, 1730 [facility] Last Admin: 07/05/19 18:27 Dose: Not Given Donepezil HCl (Aricept -) 10 mg PO DAILY [facility] Last Admin: 07/05/19 10:13 Dose: 10 mg Enalapril Maleate (Vasotec -) 20 mg PO DAILY [facility] Last Admin: 07/05/19 10:13 Dose: 20 mg Dextrose/Sodium Chloride (D5-1/2ns -) 1,000 mls @ 60 mls/hr IV ASDIR [facility] Last Admin: 07/05/19 17:39 Dose: 60 mls/hr Levetiracetam (Keppra Injection -) 250 mg IVPB BID [facility] Last Admin: 07/05/19 10:14 Dose: 250 mg Metoprolol Tartrate (Lopressor Injection -) 5 mg IVPUSH Q8H PRN PRN Reason: HYPERTENSION Olanzapine 5 mg/ Olanzapine 2. (5 mg) 7.5 mg PO HS [facility] Last Admin: 07/04/19 21:39 Dose: 7.5 mg - Objective Vital Signs: Vital Signs Temperature 97.6 F 07/05/19 14:00 Pulse Rate 76 07/05/19 16:00 Respiratory Rate 16 07/05/19 16:00 Blood Pressure 124/84 07/05/19 16:00 O2 Sat by Pulse Oximetry (%) 100 07/05/19 09:00 Constitutional: Yes: Well Nourished, No Distress, Calm Eyes: Yes: Conjunctiva Clear, EOM Intact HENT: Yes: Atraumatic, Normocephalic Neck: Yes: Supple, Trachea Midline Cardiovascular: Yes: Regular Rate and Rhythm Respiratory: Yes: Regular, CTA Bilaterally Gastrointestinal: Yes: Normal Bowel Sounds, Soft ...Rectal Exam: Yes: Deferred Genitourinary: Yes: WNL Breast(s): Yes: WNL Musculoskeletal: Yes: Muscle Weakness Extremities: Yes: Other (generalized muscle weakness) Edema: No Peripheral Pulses WNL: Yes Peripheral Pulses: Left Radial: 2+, Right Radial: 2+, Left Doralis Pedis: 2+, Right Dorsalis Pedis: 2+, Left Femoral: 2+, Right Femoral: 2+ Integumentary: Yes: WNL Neurological: Yes: Alert, Confusion, Weakness ...Motor Strength: LUE (generalized muscle weakness) Psychiatric: Yes: Alert Labs: CBC, BMP 07/04/19 05:30 07/04/19 05:30 INR, PTT INR 1.18 (0.83-1.09) H 06/29/19 13:00 - ....Imaging Other: Report Reviewed (Lab data reviewed) Problem List - Problems (1) Lethargy Code(s): R53.83 - OTHER FATIGUE (2) Acute respiratory failure Code(s): J96.00 - ACUTE RESPIRATORY FAILURE, UNSP W HYPOXIA OR HYPERCAPNIA Qualifiers: Respiratory failure complication: hypoxia Qualified Code(s): J96.01 - Acute respiratory failure with hypoxia (3) Febrile illness, acute Code(s): R50.9 - FEVER, UNSPECIFIED (4) Lactic acidosis Code(s): E87.2 - ACIDOSIS (5) Pneumonia Code(s): J18.9 - PNEUMONIA, UNSPECIFIED ORGANISM (6) Unwitnessed fall Code(s): R29.6 - REPEATED FALLS (7) Acute sepsis Code(s): A41.9 - SEPSIS, UNSPECIFIED ORGANISM (8) Transaminasemia Code(s): R74.0 - NONSPEC ELEV OF LEVELS OF TRANSAMNS & LACTIC ACID DEHYDRGNSE Assessment/Plan Assessment/plan: acute sepsis, ?acute viral syndrome, ?acute HCAP, resolving transaminasemia; IV fluids, oral Augementin, discharge plannning, social media executive request.
[2019-07-05] MEDS ORDERED: PT OWN MED DRAWER 7, Y5N ONE (21:39)
[2019-07-05] MEDS: OLANZAPINE 5 MG, OLANZAPINE 2.5 MG PO SCH (22:47)
[2019-07-06 06:40] LABS: BASO % 0.6 % (0-2.0); HEMATOCRIT 39.6 % (35.4-49); HEMOGLOBIN 13.4 GM/dL (11.7-16.9); LYMPH % 19.8 % (8-40); MCH 34.3 pg (25.7-33.7); MEAN CELL VOLUME 101.1 fl (80-96); MEAN PLT VOLUME 7.5 fl (7.5-11.1); MONO % 10.8 % (3.8-10.2); NEUT % 64.8 % (42.8-82.8); PLATELET COUNT 342 K/MM3 (134-434); RBC 3.91 M/mm3 (4.00-5.60); WHITE BLOOD COUNT 6.9 K/mm3 (4.0-10.0)
[2019-07-06 07:15] LABS: ALBUMIN 2.4 g/dl (3.4-5.0); BILIRUBIN,TOTAL 0.6 mg/dL (0.2-1); BLOOD UREA NITROGEN 18.8 mg/dL (7-18); CALCIUM 8.9 mg/dL (8.5-10.1); CREATININE 1.2 mg/dL (0.55-1.3); POTASSIUM 4.2 mmol/L (3.5-5.1); TOT PROT 5.5 g/dl (6.4-8.2)
[2019-07-06] MEDS: DONEPEZIL HCL 10 MG TABLET (FP) PO SCH (09:52)
[2019-07-06] MEDS: levETIRAcetam 500 MG/5 ML INJECTION VIAL IVPB SCH ×2 (09:53→21:55)
[2019-07-06] MEDS: AMOX TR/POT CLAV 875MG/125MG TABLETS (FP) PO SCH ×2 (09:53→18:11)
[2019-07-06] MEDS: ALLOPURINOL 300 MG TABLET (FP) PO SCH (09:54)
[2019-07-06] MEDS: ENALAPRIL MALEATE 10 MG TABLET (FP) PO SCH (09:55)
[2019-07-06 14:27] VITALS: BMI 24.1
[2019-07-06] MEDS: DEXTROSE 5%-0.45% SALINE 1,000 ML IV SCH (19:00)
[2019-07-06] MEDS: OLANZAPINE 5 MG, OLANZAPINE 2.5 MG PO SCH (21:58)
[2019-07-07] MEDS ORDERED: PT OWN MED DRAWER 7, Y5N ONE ×2 (08:50→22:30)
[2019-07-07] MEDS: ALLOPURINOL 300 MG TABLET (FP) PO SCH (09:51)
[2019-07-07] MEDS: DONEPEZIL HCL 10 MG TABLET (FP) PO SCH (09:55)
[2019-07-07] MEDS: AMOX TR/POT CLAV 875MG/125MG TABLETS (FP) PO SCH (09:55)
[2019-07-07] MEDS: levETIRAcetam 500 MG/5 ML INJECTION VIAL IVPB SCH ×2 (09:56→22:56)
[2019-07-07] MEDS: ENALAPRIL MALEATE 10 MG TABLET (FP) PO SCH (09:56)
--- NOTE | 2019-07-07 11:23 | PN ---
Progress Note, Physician Chief Complaint: Patient seen and examined at the bedside in ICU, refuses to eat and take oral meds, not in any acute distress. History of Present Illness: This 84 yr old w/m with hx of dementia, cerebral amyloid angiopathy, hypertension, and prostate cancer admitted via ER with acute sepsis, acute fever , acute lethargy, and congestion. - Current Medication List Current Medications: Active Medications Acetaminophen (Tylenol -) 500 mg PO Q6H PRN PRN Reason: TEMP > 100.5 F Last Admin: 07/03/19 22:06 Dose: 500 mg Allopurinol (Zyloprim -) 300 mg PO DAILY [facility] Last Admin: 07/07/19 09:51 Dose: Not Given Amoxicillin/Clavulanate Potassium (Augmentin 250 Mg/5 Ml Oral Suspension -) 500 mg PO TID [facility] Donepezil HCl (Aricept -) 10 mg PO DAILY [facility] Last Admin: 07/07/19 09:55 Dose: Not Given Enalapril Maleate (Vasotec -) 20 mg PO DAILY [facility] Last Admin: 07/07/19 09:56 Dose: Not Given Dextrose/Sodium Chloride (D5-1/2ns -) 1,000 mls @ 50 mls/hr IV ASDIR [facility] Last Admin: 07/06/19 19:00 Dose: 50 mls/hr Levetiracetam (Keppra Injection -) 250 mg IVPB BID [facility] Last Admin: 07/07/19 09:56 Dose: 250 mg Metoprolol Tartrate (Lopressor Injection -) 5 mg IVPUSH Q8H PRN PRN Reason: HYPERTENSION Olanzapine 5 mg/ Olanzapine 2. (5 mg) 7.5 mg PO HS [facility] Last Admin: 07/06/19 21:58 Dose: 7.5 mg - Objective Vital Signs: Vital Signs Temperature 98.2 F 07/07/19 06:00 Pulse Rate 63 07/07/19 06:00 Respiratory Rate 14 07/07/19 06:00 Blood Pressure 123/67 07/07/19 06:00 O2 Sat by Pulse Oximetry (%) 98 07/06/19 20:55 Constitutional: Yes: Well Nourished, No Distress, Calm Eyes: Yes: Conjunctiva Clear, EOM Intact HENT: Yes: Atraumatic, Normocephalic Neck: Yes: Supple, Trachea Midline Cardiovascular: Yes: Regular Rate and Rhythm Respiratory: Yes: Regular, CTA Bilaterally Gastrointestinal: Yes: Normal Bowel Sounds, Soft ...Rectal Exam: Yes: Deferred Genitourinary: Yes: WNL Breast(s): Yes: WNL Musculoskeletal: Yes: Muscle Weakness Extremities: Yes: Other (generalized muscle weakness) Edema: No Peripheral Pulses WNL: Yes Peripheral Pulses: Left Radial: 2+, Right Radial: 2+, Left Doralis Pedis: 2+, Right Dorsalis Pedis: 2+, Left Femoral: 2+, Right Femoral: 2+ Integumentary: Yes: WNL Neurological: Yes: Alert, Unsteady Gait, Weakness ...Motor Strength: LUE (generalized muscle weakness of all extremities) Psychiatric: Yes: Alert Labs: CBC, BMP 07/06/19 05:50 07/06/19 05:50 INR, PTT INR 1.18 (0.83-1.09) H 06/29/19 13:00 - ....Imaging Other: Report Reviewed (Lab data reviewed) Problem List - Problems (1) Lethargy Code(s): R53.83 - OTHER FATIGUE (2) Acute respiratory failure Code(s): J96.00 - ACUTE RESPIRATORY FAILURE, UNSP W HYPOXIA OR HYPERCAPNIA Qualifiers: Respiratory failure complication: hypoxia Qualified Code(s): J96.01 - Acute respiratory failure with hypoxia (3) Febrile illness, acute Code(s): R50.9 - FEVER, UNSPECIFIED (4) Lactic acidosis Code(s): E87.2 - ACIDOSIS (5) Pneumonia Code(s): J18.9 - PNEUMONIA, UNSPECIFIED ORGANISM (6) Unwitnessed fall Code(s): R29.6 - REPEATED FALLS (7) Acute sepsis Code(s): A41.9 - SEPSIS, UNSPECIFIED ORGANISM (8) Transaminasemia Code(s): R74.0 - NONSPEC ELEV OF LEVELS OF TRANSAMNS & LACTIC ACID DEHYDRGNSE Assessment/Plan Assessment/plan: acute sepsis, acute fever, acute lethargy, ?acute HCAP; IV fluids, physical therapy, Neuro and Psych eval pending.
[2019-07-07] MEDS: AMOX TR/POTASSIUM CLAVULANATE 250 MG/5 ML BOTTLE PO SCH ×3 (11:34→22:38)
--- NOTE | 2019-07-07 17:25 | CON.NEURO ---
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 Cardio/Vascular: Yes: HTN Pulmonary: Yes: Pneumonia Gastrointestinal: No: Ascites, Cancer, Constipation, Crohn's Disease, Diverticulitis, Diverticulosis, Esophageal Varices, Gastritis, GERD, GI Bleed, Hemorrhoids, Hiatal Hernia, Inflamatory Bowel Disease, Irritable Bowel Disease, Pancreatitis, Peptic Ulcer Disease, Ulcerative Colitis, Other Hepatobiliary: No: Cirrhosis, Cholelithiasis, Cholecystitis, Choledocholithiasis , Hepatitis A, Hepatitis B, Hepatitis C, Other Renal/: Yes: Cancer (prostate, s/p total prostatectomy) Infectious Disease: No: AIDS, C-Diff, Herpes Zoster, HIV, MRSA, STD's, Tuberculosis, VREF, Other Musculoskeletal: No: Bursitis, Chronic low back pain, Hemiparesis, Hemiplegia, Osteoarthritis, Paraplegia, Other Rheumatology: No: Fibromyalgia, Gout, Lupus, Rheumatoid Arthritis, Sarcoidosis, Vasculitis, Other ENT: No: Allergic Rhinitis, Sinusitis, Other Endocrine: No: Job's Disease, Kristin's Disease, Diabetes Insipidus, Diabetes Mellitus, Hyperparathyroidism, Hyperthyroidism, Hypothyroidism, Osteopenia, SIADH, Other Dermatology: No: Basal Cell, Cellulitis, Eczema, Melanoma, Psoriasis, Squamous Cell, Other - Past Surgical History Past Surgical History: Yes: Prostatectomy (ca of prostate) - Alcohol/Substance Use Hx Alcohol Use: No - Smoking History Smoking history: Never smoked Have you smoked in the past 12 months: No - Social History History of Recent Travel: No Home Medications - Allergies Allergies/Adverse Reactions: Allergies Allergy/AdvReac Type Severity Reaction Status Date / Time lansoprazole Allergy Verified 06/29/19 11:58 NSAIDS (Non-Steroidal Allergy Verified 06/29/19 11:58 Anti-Inflamma - Home Medications Home Medications: Ambulatory Orders Allopurinol 300 mg PO DAILY 06/28/19 Donepezil HCl 10 mg PO DAILY 06/28/19 Enalapril Maleate [Vasotec] 20 mg PO DAILY 06/28/19 Levomefolate/Algal Oil [Deplin-Algal Oil 15 mg Capsule] 15 - 90.314 each PO DAILY 06/28/19 Naratriptan HCl [Amerge (Nf) -] 2.5 mg PO PRN PRN 06/28/19 Olanzapine 7.5 mg PO HS 01/16/20 Pravastatin Sodium 20 mg PO HS 06/28/19 levETIRAcetam [Keppra -] 250 mg PO BID 06/28/19 Acetaminophen [Tylenol .Extra-Strength -] 500 mg PO Q6H PRN tablet 07/05/19 Allopurinol [Zyloprim -] 300 mg PO DAILY tablet 07/05/19 Amox-Tr/K Cl [Augmentin 875-125mg Tablet -] 1 tab PO BID@0800,1730 tablet 07/05 Donepezil HCl [Aricept -] 10 mg PO DAILY tablet 07/05/19 Enalapril Maleate [Vasotec -] 20 mg PO DAILY tablet 07/05/19 Metoprolol Tartrate Injection [Lopressor Injection -] 5 mg IVPUSH Q8H PRN vial 07/05/19 Olanzapine [Zyprexa -] 7.5 mg PO HS tablet 07/05/19 Physical Exam-Neuro Vital Signs: Vital Signs Temperature 98.2 F 07/07/19 06:00 Pulse Rate 63 07/07/19 06:00 Respiratory Rate 14 07/07/19 06:00 Blood Pressure 123/67 07/07/19 06:00 O2 Sat by Pulse Oximetry (%) 98 07/07/19 09:00 Labs: CBC, BMP 07/06/19 05:50 07/06/19 05:50 INR, PTT INR 1.18 (0.83-1.09) H 06/29/19 13:00 Assessment/Plan cc Not eating , and worsening of Dementia HPI 84 year old male history of demenita, amyloid angiopathy, htn, came from [place] for respiratory failure was on abx. Patient is getting better in terms of his septicemia. He is refusing or cooperating to eat. He is totally disoriented. He also have history of seizure on keppra. He has been afebrile and he is not getting any ora medication Patient has DNR.DNI and he has prior wishes to not to feed him by artificial means. Allergies: None Past Medical History: Dementia, amyloid cerebral angiopathy, HTN, seizures Social history: [facility]. Unknown if ever smoked. no flu shot this year. Surgical history: None reported M Allergies/Adverse Reactions: Allergies Allergy/AdvReac Type Severity Reaction Status Date / Time lansoprazole Allergy Verified 06/29/19 11:58 NSAIDS (Non-Steroidal Allergy Verified 06/29/19 11:58 Anti-Inflamma Home Medications: Allopurinol 300 mg PO DAILY 06/28/19 Donepezil HCl 10 mg PO DAILY 06/28/19 Enalapril Maleate [Vasotec] 20 mg PO DAILY 06/28/19 Levomefolate/Algal Oil [Deplin-Algal Oil 15 mg Capsule] 15 - 90.314 each PO DAILY 06/28/19 Naratriptan HCl [Amerge -] 2.5 mg PO PRN PRN 06/28/19 Olanzapine 7.5 mg PO DAILY 06/28/19 Pravastatin Sodium 20 mg PO HS 06/28/19 levETIRAcetam [Keppra -] 250 mg PO BID 06/28/19 ROS,FH,SH reviewed in chart NEUROLOGICAL EXAMINATION Alert oriented x 0, neck is supple afebrile vss eomi, no face asymmetry, pupils reactive moving all ext ct head no acute changes Assessment/Plan 84 year old male history of demenita, amyloid angiopathy, htn, came to hospital for septicemia and now has been afebrile and now he is refusing to cooperate and refusing to eat. Patient has prior wishes not to feed him. Plan: Refusing to eat could be secondary to his intercurrent medical illness ( Septicemia and Hospitalization ) , may get better once he reached to more normal setting . It would be difficult to predict. Clinically there is no evidence of meningitis, stroke or status epilepticus Plan solution to this issue is either give him some temporary arrangement to feed him while waiting to recovery or expediate more normal setting . - speech /swallow consult can be obtained - spoke to staff, psych consult is pending Thanking you so much Efrain Concepcion MD
[2019-07-07] MEDS: OLANZAPINE 5 MG, OLANZAPINE 2.5 MG PO SCH (22:38)
[2019-07-07] MEDS: DEXTROSE 5%-0.45% SALINE 1,000 ML IV SCH (22:57)
[2019-07-08 06:14] LABS: BASO % 0.9 % (0-2.0); EOS % 2.9 % (0-4.5); HEMATOCRIT 38.9 % (35.4-49); HEMOGLOBIN 13.4 GM/dL (11.7-16.9); LYMPH % 14.6 % (8-40); MCH 34.4 pg (25.7-33.7); MCHC 34.3 g/dl (32.0-35.9); MEAN CELL VOLUME 100.1 fl (80-96); MEAN PLT VOLUME 7.5 fl (7.5-11.1); MONO % 7.3 % (3.8-10.2); NEUT % 74.3 % (42.8-82.8); PLATELET COUNT 397 K/MM3 (134-434); RBC 3.89 M/mm3 (4.00-5.60); RDW 13.9 % (11.9-15.9)
[2019-07-08] MEDS: AMOX TR/POTASSIUM CLAVULANATE 250 MG/5 ML BOTTLE PO SCH ×3 (06:38→22:16)
[2019-07-08 06:40] LABS: ALBUMIN 2.5 g/dl (3.4-5.0); BILIRUBIN,TOTAL 0.4 mg/dL (0.2-1); BLOOD UREA NITROGEN 19.4 mg/dL (7-18); CALCIUM 8.7 mg/dL (8.5-10.1); CREATININE 1.1 mg/dL (0.55-1.3); POTASSIUM 4.2 mmol/L (3.5-5.1); TOT PROT 5.5 g/dl (6.4-8.2)
[2019-07-08] MEDS: levETIRAcetam 500 MG/5 ML INJECTION VIAL IVPB SCH ×2 (10:30→22:17)
[2019-07-08] MEDS: DONEPEZIL HCL 10 MG TABLET (FP) PO SCH (10:52)
[2019-07-08] MEDS: ENALAPRIL MALEATE 10 MG TABLET (FP) PO SCH (10:52)
[2019-07-08] MEDS: ALLOPURINOL 300 MG TABLET (FP) PO SCH (10:52)
--- NOTE | 2019-07-08 12:08 | CON.PSY ---
Psychiatry Consult Chief Complaint: 84 year old male with DEmentia severe type, seen for Psych consult for failure to thrive and refusing to eat. has septesemia. Symptoms: reports: Appetite Disturbance, Decreased Motivation, Memory Impairment - Previous Psychiatric Treatment Outpatient: None Inpatient: None - Previous Substance Abuse Treatment Outpatient: None Inpatient: None - Current Medications Current Medications: Active Medications Acetaminophen (Tylenol -) 500 mg PO Q6H PRN PRN Reason: TEMP > 100.5 F Last Admin: 07/03/19 22:06 Dose: 500 mg Allopurinol (Zyloprim -) 300 mg PO DAILY [facility] Last Admin: 07/08/19 10:52 Dose: 300 mg Amoxicillin/Clavulanate Potassium (Augmentin 250 Mg/5 Ml Oral Suspension -) 500 mg PO TID [facility] Last Admin: 07/08/19 06:38 Dose: Not Given Enalapril Maleate (Vasotec -) 20 mg PO DAILY [facility] Last Admin: 07/08/19 10:52 Dose: 20 mg Dextrose/Sodium Chloride (D5-1/2ns -) 1,000 mls @ 50 mls/hr IV ASDIR [facility] Last Admin: 07/07/19 22:57 Dose: 50 mls/hr Levetiracetam (Keppra Injection -) 250 mg IVPB BID [facility] Last Admin: 07/08/19 10:30 Dose: 250 mg Metoprolol Tartrate (Lopressor Injection -) 5 mg IVPUSH Q8H PRN PRN Reason: HYPERTENSION - Allergies Allergies: Allergies Allergy/AdvReac Type Severity Reaction Status Date / Time lansoprazole Allergy Verified 06/29/19 11:58 NSAIDS (Non-Steroidal Allergy Verified 06/29/19 11:58 Anti-Inflamma - Current Living Status Usual Living Arrangement: Half-Way - Current Mental Status Evaluation Appearance: Well Groomed Attitude: Uncooperative - Affect Affect: Constrictive Appropriateness: Not Appropriate - Mood Mood: Irritable - Speech/Language Expressive: Delayed - Psychomotor Activity Psychomotor Activity: Slowed - Thought Process Thought Process: Circumstantial - Thought Content Hallucinations: Absent Delusions: Absent - Self Perception Self Perception: Depersonalization - Cognition Attention: Diminished Memory, Short Term: 1/3 Memory, Remote with Promptin/3 - Concentration Serial Sevens Intact: No Simple Calculations Intact: No - Abstraction Proverb Interpretation: Impaired Judgement: Moderately Impaired - Insight Insight: Impaired - Impulse Control Impulse Control: Minimally Impaired - Suicidal Ideation Suicidal Ideation: No - Homicidal Ideation Homicidal Ideation: No Assessment/Plan 1( d/c Aricept can cause Anorexia. 2) increase Zyprexa 10 mg po hs. 3) Patient lacks Mental Capacity to make Decisions at this time. *
--- NOTE | 2019-07-08 14:09 | PN ---
Progress Note, Physician Chief Complaint: Patient seen and examined by the bedside in ICU, refusing to eat and take oral meds, no labored breathing. History of Present Illness: This 84 yr old w/m with hx of dementia, cerebral amyloid angiopathy, prostate cancer, hypertension admitted via ER with acute fever, acute lethargy, acute sepsis. - Current Medication List Current Medications: Active Medications Acetaminophen (Tylenol -) 500 mg PO Q6H PRN PRN Reason: TEMP > 100.5 F Last Admin: 07/03/19 22:06 Dose: 500 mg Allopurinol (Zyloprim -) 300 mg PO DAILY [facility] Last Admin: 07/08/19 10:52 Dose: 300 mg Amoxicillin/Clavulanate Potassium (Augmentin 250 Mg/5 Ml Oral Suspension -) 500 mg PO TID [facility] Last Admin: 07/08/19 06:38 Dose: Not Given Enalapril Maleate (Vasotec -) 20 mg PO DAILY [facility] Last Admin: 07/08/19 10:52 Dose: 20 mg Dextrose/Sodium Chloride (D5-1/2ns -) 1,000 mls @ 50 mls/hr IV ASDIR [facility] Last Admin: 07/07/19 22:57 Dose: 50 mls/hr Levetiracetam (Keppra Injection -) 250 mg IVPB BID [facility] Last Admin: 07/08/19 10:30 Dose: 250 mg Metoprolol Tartrate (Lopressor Injection -) 5 mg IVPUSH Q8H PRN PRN Reason: HYPERTENSION Olanzapine (Zyprexa -) 10 mg PO HS [facility] - Objective Vital Signs: Vital Signs Temperature 98.6 F 07/08/19 06:00 Pulse Rate 90 07/08/19 09:15 Respiratory Rate 07/08/19 09:15 Blood Pressure 119/83 07/08/19 09:15 O2 Sat by Pulse Oximetry (%) 97 07/08/19 09:00 Constitutional: Yes: Well Nourished, No Distress, Calm Eyes: Yes: Conjunctiva Clear, EOM Intact HENT: Yes: Atraumatic, Normocephalic Neck: Yes: Supple, Trachea Midline Cardiovascular: Yes: Regular Rate and Rhythm Respiratory: Yes: Regular, CTA Bilaterally Gastrointestinal: Yes: Normal Bowel Sounds, Soft ...Rectal Exam: Yes: Deferred Genitourinary: Yes: WNL Breast(s): Yes: WNL Musculoskeletal: Yes: Muscle Weakness Extremities: Yes: Other (generalized muscle weakness) Edema: No Peripheral Pulses WNL: Yes Peripheral Pulses: Left Radial: 2+, Right Radial: 2+, Left Doralis Pedis: 2+, Right Dorsalis Pedis: 2+, Left Femoral: 2+, Right Femoral: 2+ Integumentary: Yes: WNL Neurological: Yes: Alert, Lethargy, Unsteady Gait, Weakness ...Motor Strength: LUE (generalized muscle weakness of all extremities) Psychiatric: Yes: Alert Labs: CBC, BMP 07/08/19 05:35 07/08/19 05:35 INR, PTT INR 1.18 (0.83-1.09) H 06/29/19 13:00 - ....Imaging Other: Report Reviewed (Lab data reviewed, Neuro and Psych notes read and appreciated.) Problem List - Problems (1) Lethargy Code(s): R53.83 - OTHER FATIGUE (2) Acute respiratory failure Code(s): J96.00 - ACUTE RESPIRATORY FAILURE, UNSP W HYPOXIA OR HYPERCAPNIA Qualifiers: Respiratory failure complication: hypoxia Qualified Code(s): J96.01 - Acute respiratory failure with hypoxia (3) Febrile illness, acute Code(s): R50.9 - FEVER, UNSPECIFIED (4) Lactic acidosis Code(s): E87.2 - ACIDOSIS (5) Pneumonia Code(s): J18.9 - PNEUMONIA, UNSPECIFIED ORGANISM (6) Unwitnessed fall Code(s): R29.6 - REPEATED FALLS (7) Acute sepsis Code(s): A41.9 - SEPSIS, UNSPECIFIED ORGANISM (8) Transaminasemia Code(s): R74.0 - NONSPEC ELEV OF LEVELS OF TRANSAMNS & LACTIC ACID DEHYDRGNSE Assessment/Plan Assessment/plan: acute sepsis, acute fever, acute lethargy, refuses to eat and take oral meds, dc Aricept, increase Zyprexa; IV fluids, IV Keppra, discharge planning, social work case manager request, transfer to [facility].
[2019-07-08] MEDS: DEXTROSE 5%-0.45% SALINE 1,000 ML IV SCH (18:36)
[2019-07-08] MEDS ORDERED: OLANZapine 10 MG TABLET PO SCH (22:00)
[2019-07-08] MEDS ORDERED: PT OWN MED DRAWER 7, Y5N ONE (22:11)
[2019-07-09] MEDS: AMOX TR/POTASSIUM CLAVULANATE 250 MG/5 ML BOTTLE PO SCH (05:32)
[2019-07-09] MEDS: levETIRAcetam 500 MG/5 ML INJECTION VIAL IVPB SCH (09:48)
[2019-07-09] MEDS: ALLOPURINOL 300 MG TABLET (FP) PO SCH (09:49)
[2019-07-09] MEDS: ENALAPRIL MALEATE 10 MG TABLET (FP) PO SCH (09:49)
--- NOTE | 2019-07-09 10:56 | CONSULT ---
Admitting History and Physical - Primary Care Physician PCP: Sebas Sheikh - Admission History of Present Illness: 84 year old male history of Dementia, amyloid angiopathy, htn, came to hospital for septicemia and now has been afebrile and now he is refusing to cooperate and refusing to eat. Per Psych- 1( d/c Aricept can cause Anorexia. 2) increase Zyprexa 10 mg po hs. 3) Patient lacks Mental Capacity to make Decisions at this time. Selected Entries 07/08/19 07/08/19 07/08/19 02:00 06:00 13:26 Breakfast Lunch 25% Temperature 98.2 F 98.6 F 07/08/19 07/08/19 07/09/19 18:00 22:00 09:51 Breakfast Lunch Temperature 98.2 F 98.2 F 97.3 F L 07/09/19 10:00 Breakfast 0 Lunch Temperature Laboratory Tests 07/06/19 07/08/19 05:50 05:35 WBC 6.9 9.0 Pt refused medication this am. Pt is quite confused, able to respond to questions occasionally but vague. 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 Stated "that hurts" and "It's not a good thing" but could not elaborate. 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 Cardiovascular: Yes: HTN Pulmonary: Yes: Pneumonia Gastrointestinal: No: Ascites, Cancer, Constipation, Crohn's Disease, Diverticulitis, Diverticulosis, Esophageal Varices, Gastritis, GERD, GI Bleed, Hemorrhoids, Hiatal Hernia, Inflamatory Bowel Disease, Irritable Bowel Disease, Pancreatitis, Peptic Ulcer Disease, Ulcerative Colitis, Other Hepatobiliary: No: Cirrhosis, Cholelithiasis, Cholecystitis, Choledocholithiasis , Hepatitis A, Hepatitis B, Hepatitis C, Other Renal/: Yes: Cancer (prostate, s/p total prostatectomy) Heme/Onc: No: Anemia, B12 Deficiency, Bleeding Disorder, Cancer, Current Chemotherapy, Current Radiation Therapy, Hemochromatosis, Hypercoaguable State, Myeloproliferative Synd, Sickle Cell Disease, Sickle Cell Trait, Thrombocytopenia, Other Infectious Disease: No: AIDS, C-Diff, Herpes Zoster, HIV, MRSA, STD's, Tuberculosis, VREF, Other Musculoskeletal: No: Bursitis, Chronic low back pain, Hemiparesis, Hemiplegia, Osteoarthritis, Paraplegia, Other Rheumatology: No: Fibromyalgia, Gout, Lupus, Rheumatoid Arthritis, Sarcoidosis, Vasculitis, Other ENT: No: Allergic Rhinitis, Sinusitis, Other Endocrine: No: Haysi's Disease, Cleveland's Disease, Diabetes Insipidus, Diabetes Mellitus, Hyperparathyroidism, Hyperthyroidism, Hypothyroidism, Osteopenia, SIADH, Other Dermatology: No: Basal Cell, Cellulitis, Eczema, Melanoma, Psoriasis, Squamous Cell, Other - Past Surgical History Past Surgical History: Yes: Prostatectomy (ca of prostate) - Advance Directives Advance Directives: Yes: DNR - Smoking History Smoking history: Never smoked Have you smoked in the past 12 months: No - Alcohol/Substance Use Hx Alcohol Use: No - Social History History of Recent Travel: No History - Admission Reason For Visit: ACUTE RESP FAILURE,PNEUMONIA,ACUTE FEBRILE ILLNESS - Diagnostics X-ray: Report Reviewed - General Mental Status: Awake and Alert (eyes closed mostly.), Able to Follow Commands ( simple, occasional), Forgetful, Vague, Confused - Hearing Hearing: Normal Speech Evaluation - Communication Primary Language: DANISH Oral Expression Ability: Yes: Moderate Impairment (Language of confusion sec to Dementia. Brief, vague verbalizations, missing content words.) - Speech Production Able to Make Needs Known: Yes: Moderately Impaired Intelligibility: Yes: WNL - Speech Characteristics Voice Loudness: Normal Voice Pitch: Yes: Normal Voice Phonatory-based Quality: Yes: Normal Speech Pattern: Normal Speech Clarity: < 100% Nasal Resonance: Normal Articulation: Yes: Precise - Language/Auditory Comprehension Observation: Able to respond to yes/no queries: Yes (not always consistent, reliable), Yes/No Confusion: Yes, Comprehends Conversational Speech: Yes (simple ), Benefits from Slow Speech: Yes, Benefits from Repetiton: Yes (short, simple swntences) - Language/Verbal Expression Aphasia: Yes: Anomia Functional Communication Status: Yes: Moderately Impaired - Swallow Evaluation/Bedside Assessment Current Nutritional Intake: Thin Liquids, Other (chopped) Oral Secretions: Yes: WFL (has cough, sounds congested) Dentition: Yes: Adequate Facial Symmetry at Rest: Symmetrical Jaw Position: Closed at Rest (unable to open mouth much. Limited assessment.) Laryngeal Elevation: WFL Laryngeal Movement: Able to Palpate Rate of Intake: WFL (through straw, able to drink continuously. Finished 3/4 bottle Ensure for me. One instance of delayed cough.) Sensation: Hypersensitive (Lip purse response to spoon placed to mouth- Seems to be reflexive- Snout reflex? Does not appear intensional?) Labial Seal: WFL (tight lip closure- reflexive vs oral defensiveness) Chewing: Impaired A-P Transit: Impaired (with puree/chopped) Timing of Swallow: WFL Coughing/Throat Clear: Yes (1 instance with continuous drinking) Recommendations - Speech Evaluation, Impression/Plan Impression: Lip purse response to spoon placed to mouth- Seems to be reflexive- Snout reflex? Does not appear intensional. Lips purse immediately, unable to accept food on a spoon. Pt was able to accept nutrion/hydration through a straw , able to drink continuously, with verbal cues to "suck through the straw-drink " Finished 3/4 bottle Ensure for me. One instance of delayed cough. - Disposition Discharge to: Long-Term Facility - Dysphagia Impressions/Plan Swallowing Skills: Impaired Dysphagia Impressions: Moderate Impairment, Risk of Aspiration *Silent aspiration: cannot be R/O at bedside Dysphagia Treatment Plan: Elevate HOB during feed (Maintain upright posture for an hour after PO intake) Recommendations: Palliative Care (Pt is a full code in computer. Paperwork in paper chart-DNR,Comfort measures only,DNI- Please refer to MOLST form in paper chart signed 05/23/19.) - Recommendations Diet Consistency: Other (Trial of liquid only via medicine cup or straw- Hydration, Ensure plus- 4-5 a day via straw.) Liquids: Thin Liquids (straw) Supplement: Ensure (Ensure plus- 4-5 daily.via straw), Other (cush meds and give in liquid.)
--- NOTE | 2019-07-09 12:49 | DS ---
Physical Examination Vital Signs: Vital Signs Temperature 97.3 F L 07/09/19 09:51 Pulse Rate 96 H 07/09/19 12:00 Respiratory Rate 18 07/09/19 12:00 Blood Pressure 109/80 07/09/19 12:00 O2 Sat by Pulse Oximetry (%) 95 07/09/19 10:02 Constitutional: Yes: Well Nourished, No Distress, Calm Eyes: Yes: Conjunctiva Clear, EOM Intact HENT: Yes: Atraumatic, Normocephalic Neck: Yes: Supple, Trachea Midline Cardiovascular: Yes: Regular Rate and Rhythm Respiratory: Yes: Regular, CTA Bilaterally Gastrointestinal: Yes: Normal Bowel Sounds, Soft ...Rectal Exam: Yes: Deferred Renal/: Yes: WNL Breast(s): Yes: WNL Musculoskeletal: Yes: Muscle Weakness Extremities: Yes: Other (generalized muscle weakness) Edema: No Peripheral Pulses WNL: Yes Peripheral Pulses: Left Radial: 2+, Right Radial: 2+, Left Doralis Pedis: 2+, Right Dorsalis Pedis: 2+, Left Femoral: 2+, Right Femoral: 2+ Integumentary: Yes: WNL Neurological: Yes: Alert, Confusion, Unsteady Gait, Weakness ...Motor Strength: LUE (generalized muscle weakness of all extremities) Psychiatric: Yes: Alert Labs: CBC, BMP 07/08/19 05:35 07/08/19 05:35 Discharge Summary Problems reviewed: Yes Reason For Visit: ACUTE RESP FAILURE,PNEUMONIA,ACUTE FEBRILE ILLNESS Current Active Problems Acute respiratory failure (Acute) Acute sepsis (Acute) Febrile illness, acute (Acute) Lactic acidosis (Acute) Lethargy (Acute) Pneumonia (Acute) Transaminasemia (Acute) Condition: Fair - Instructions Diet, Activity, Other Instructions: Continue home meds. Discontinue Aricept (anorexia). Refusing to eat and take oral meds. Keppra 250mg IVPB BID. Physical therapy. Activity as tolerated. Transfer to [facility] for short term rehab. Total time spent over 30 minutes. Referrals: April Wise [Primary Care Provider] - Disposition: [facility] - Home Medications Comprehensive Discharge Medication List: Ambulatory Orders Allopurinol 300 mg PO DAILY 06/28/19 Donepezil HCl 10 mg PO DAILY 06/28/19 Enalapril Maleate [Vasotec] 20 mg PO DAILY 06/28/19 Levomefolate/Algal Oil [Deplin-Algal Oil 15 mg Capsule] 15 - 90.314 each PO DAILY 06/28/19 Naratriptan HCl [Amerge (Nf) -] 2.5 mg PO PRN PRN 06/28/19 Olanzapine 7.5 mg PO HS 06/28/19 Pravastatin Sodium 20 mg PO HS 06/28/19 levETIRAcetam [Keppra -] 250 mg PO BID 06/28/19 Acetaminophen [Tylenol .Extra-Strength -] 500 mg PO Q6H PRN tablet 07/05/19 Allopurinol [Zyloprim -] 300 mg PO DAILY tablet 07/05/19 Donepezil HCl [Aricept -] 10 mg PO DAILY tablet 07/05/19 Enalapril Maleate [Vasotec -] 20 mg PO DAILY tablet 07/05/19 Olanzapine [Zyprexa -] 7.5 mg PO HS tablet 07/05/19 Olanzapine [ZyPREXA -] 10 mg PO HS tablet 07/09/19 levETIRAcetam INJECTION [Keppra Injection -] 250 mg IVPB BID ml 07/09/19
[2019-07-09 14:29] VITALS: BP 110/82; PULSE 81; TEMP 98.6
[2019-07-09] MEDS ORDERED: levETIRAcetam 250 MG TABLET PO SCH (22:00)
== END 2019-07-09 15:21 | DRG 871 ==
LOC: JER 11:15 → JERBED 14:13 → J2W 06-30 09:10
PROVIDERS: ADMIT Internal Medicine; ATTEND Internal Medicine
DX: A41.9 Sepsis, unspecified organism (principal); J18.9 Pneumonia, unspecified organism; J96.01 Acute respiratory failure with hypoxia; E87.2 Acidosis; F03.90 Unspecified dementia, unspecified severity, without behavioral disturbance, psychotic disturbance, mood disturbance, and anxiety; W19.XXXA Unspecified fall, initial encounter; I68.0 Cerebral amyloid angiopathy; R62.7 Adult failure to thrive; R74.0 Nonspecific elevation of levels of transaminase and lactic acid dehydrogenase [LDH]
CPT/HCPCS: 36415; 70450-TC; 71045-TC-FY; 72125-TC; 80053; 81003; 82803; 83605; 84484; 85025; 85610; 85730; 87040; 87086; 87633; 87804; 93005; 93010; 97161-GP; 99283-25; 99285-25; J0131; J7030